=== PATIENT | male | born 1965 | race African-American/Black ===

== ENCOUNTER 2016-10-28 11:48 | Observation (INO) | payer OTHER ==
[2016-10-28] VITALS (10 sets, daily range): BP systolic 124–171; BP diastolic 74–88; PULSE 80–107; RESP 16–22; TEMP 97.7–98.4; O2SAT 93–98
[~2016-10-28] VITALS: Ht 170.2 cm; Wt 128.0 kg
[~2016-10-28 11:48] MED LIST: ASPI325T PO; LIPI10TA PO; LISI-363 PO
[2016-10-28] MEDS ORDERED: METO25TA3 PO (11:53)
[2016-10-28] MEDS ORDERED: ASPI81CH5 CHEW (11:53)
[2016-10-28] MEDS ORDERED: PLAV75TA29 PO (11:53)
[2016-10-28] MEDS ORDERED: SODIUM CHLORIDE 0.9% FLUSH 5 ML FLUSH IVF PRN ×2 (12:30→16:00)
[2016-10-28] MEDS ORDERED: MORPHINE SULFATE 4 MG/ML INJ IV PUSH ONE (12:30)
[2016-10-28] MEDS ORDERED: ASPIRIN 81 MG CHEW TAB PO ONE (12:30)
--- NOTE | 2016-10-28 12:56 | RADRPT ---
EXAM DATE/TIME: 10/28/2016 12:42 [facility] COMPARISON: CHEST SINGLE AP, November 16, 2014, 21:15. INDICATIONS : Chest pains with shortness of breath. History cardiac stents. MEDICAL HISTORY : Myocardial infarction. SURGICAL HISTORY : Coronary artery stent. ENCOUNTER: Initial ACUITY: 1 day PAIN SCORE: 8/10 LOCATION: Bilateral chest FINDINGS: A single view of the chest demonstrates the lungs to be symmetrically aerated without evidence of mas s, infiltrate or effusion. The cardiomediastinal contours are unremarkable. Osseous structures are intact. CONCLUSION: No acute disease. Uzair Phillip MD FACR on October 28, 2016 at 12:54 Board Certified Radiologist. This report was verified electronically.
[2016-10-28 13:15] LABS: AUTOMATED NEUTROPHIL # 3.9 TH/MM3 (1.8-7.7); BASOPHIL # 0.1 TH/MM3 (0-0.2); BASOPHIL % 0.9 % (0.0-2.0); EOSINOPHIL # 0.2 TH/MM3 (0-0.4); EOSINOPHIL % 2.6 % (0.0-4.0); HEMATOCRIT 40.1 % (39.0-51.0); HEMO FLAGS DIFF FINAL; LYMPH % 29.2 % (9.0-44.0); LYMPHOCYTE # 1.9 TH/MM3 (1.0-4.8); MEAN CELL VOLUME 85.4 FL (80.0-100.0); MEAN CORPUSCULAR HEMOGLOBIN 28.4 PG (27.0-34.0); MEAN CORPUSCULAR HGB CONC 33.3 % (32.0-36.0); MONO % 8.4 % (0.0-8.0); NEUT % 58.9 % (16.0-70.0); PLATELET COUNT 266 TH/MM3 (150-450); RED BLOOD COUNT 4.69 MIL/MM3 (4.50-5.90); RED CELL DISTRIBUTION WIDTH 14.2 % (11.6-17.2); WHITE BLOOD COUNT 6.6 TH/MM3 (4.0-11.0)
[2016-10-28 13:27] LABS: APTT (PATIENT) 26.8 SEC (24.3-30.1)
[2016-10-28 13:35] LABS: ALT (GPT) 37 U/L (12-78); ANION GAP 11 MEQ/L (5-15); AST (GOT) 52 U/L (15-37); BICARBONATE 23.5 MEQ/L (21.0-32.0); BLOOD UREA NITROGEN 14 MG/DL (7-18); CHLORIDE 104 MEQ/L (98-107); GLOMERULAR FILTRATION RATE 97 ML/MIN (>89); POTASSIUM 3.5 MEQ/L (3.5-5.1); SODIUM (NA) 138 MEQ/L (136-145)
--- NOTE | 2016-10-28 13:38 | RADRPT ---
EXAM DATE/TIME: 10/28/2016 13:18 [facility] COMPARISON: No previous studies available for comparison. INDICATIONS : Trauma. Fell and hit head. RADIATION DOSE: 56.35 CTDIvol (mGy) MEDICAL HISTORY : Cerebrovascular disease. Hypertension. Myocardial infarction. SURGICAL HISTORY : None. ENCOUNTER: Initial ACUITY: 1 day PAIN SCALE: 6/10 LOCATION: cranial TECHNIQUE: Multiple contiguous axial images were obtained of the head. Using automated exposure control and adj ustment of the mA and/or kV according to patient size, radiation dose was kept as low as reasonably a chievable to obtain optimal diagnostic quality images. FINDINGS: CEREBRUM: The ventricles are normal for age. No evidence of midline shift, mass lesion, hemorrhage or acute in farction. No extra-axial fluid collections are seen. POSTERIOR FOSSA: The cerebellum and brainstem are intact. The 4th ventricle is midline. The cerebellopontine angle i s unremarkable. EXTRACRANIAL: The visualized portion of the orbits is intact. SKULL: The calvaria is intact. No evidence of skull fracture. CONCLUSION: Normal examination. Wood Gray MD on October 28, 2016 at 13:36 Board Certified Radiologist. This report was verified electronically.
[2016-10-28 13:39] LABS: ALKALINE PHOSPHATASE 75 U/L (45-117); TOTAL BILIRUBIN ADULT 0.4 MG/DL (0.2-1.0)
--- NOTE | 2016-10-28 13:41 | RADRPT ---
EXAM DATE/TIME: 10/28/2016 13:18 [facility] COMPARISON: No previous studies available for comparison. INDICATIONS : Trauma. Fell and hit head. RADIATION DOSE: 40.95 CTDIvol (mGy) MEDICAL HISTORY : Cerebrovascular disease. Hypertension. Myocardial infarction. SURGICAL HISTORY : None. ENCOUNTER: Initial ACUITY: 1 day PAIN SCALE: 2/10 LOCATION: neck TECHNIQUE: Volumetric scanning of the cervical spine was performed. Multiplanar reconstructions i n the sagittal, coronal and oblique axial planes were performed. Using automated exposure control a nd adjustment of the mA and/or kV according to patient size, radiation dose was kept as low as reason ably achievable to obtain optimal diagnostic quality images. FINDINGS: VERTEBRAE: Normal vertebral body height. Minimal anterior marginal spurring C5-6 ALIGNMENT: No evidence of subluxation. Mild reversal of normal cervical curvature. C2-C3: The bony spinal canal is normal in size. No evidence of disc bulge or herniation. The neura l foramina are bilaterally patent. C3-C4: The bony spinal canal is normal in size. No evidence of disc bulge or herniation. The neura l foramina are bilaterally patent. C4-C5: The bony spinal canal is normal in size. No evidence of disc bulge or herniation. The neura l foramina are bilaterally patent. C5-C6: The bony spinal canal is normal in size. No evidence of disc bulge or herniation. The neura l foramina are bilaterally patent. C6-C7: The bony spinal canal is normal in size. No evidence of disc bulge or herniation. The neura l foramina are bilaterally patent. C7-T1: The bony spinal canal is normal in size. No evidence of disc bulge or herniation. The neura l foramina are bilaterally patent. CONCLUSION: No acute bony injury. Reversal of normal cervical curvature. Minimal anterior margina l spurring . Wood Gray MD on October 28, 2016 at 13:37 Board Certified Radiologist. This report was verified electronically.
--- NOTE | 2016-10-28 15:16 | PD ---
HPI Chief Complaint: Chest Pain Time Seen by Provider: 12:12 Travel History International Travel<30 days: No Contact w/Intl Traveler<30days: No Traveled to known affect area: No History of Present Illness HPI Patient is a 50-year-old male history of DC and stent placement, comes in complaining of chest pain. Per EMS he was placed under arrest for shoplifting when he started to complain of chest pain. He says that he had chest pain starting this morning. He says he took some aspirin at home hoping that this would help. Per EMS he fell down and hit his head when the animal attendants and trainers were going to take him in the police car to the hospital. Patient is complaining of headache as well as chest pain. He denies nausea or vomiting. He denies any shortness of breath. PFSH Past Medical History High Cholesterol: Yes Cerebrovascular Accident: Yes (LEFT SIDE STROKE 2 WEEKS AGO, LEFT JAW NUMBNESS) Diabetes: No Gastrointestinal Disorders: Yes (diverticultis) Hypertension: Yes Myocardial Infarction: Yes (2004) Tetanus Vaccination: Unknown Influenza Vaccination: No Family History Family Myocardial Infarction: Yes (father) Social History Alcohol Use: Yes Tobacco Use: Yes Substance Use: Yes (WEED) Allergies-Medications (Allergen,Severity, Reaction): Coded Allergies: Milk (Verified Allergy, Unknown, 10/28/16) Reported Meds & Prescriptions Reported Meds & Active Scripts Active Reported Metoprolol Tartrate 25 Mg Tab Unknown Dose PO DAILY Aspirin Childrens (Aspirin) 81 Mg Chew 81 Mg CHEW DAILY Plavix (Clopidogrel Bisulfate) 75 Mg Tab 75 Mg PO DAILY Review of Systems Except as stated in HPI: all other systems reviewed are Neg General / Constitutional: No: Fever, Chills HENT: Positive: Headaches Cardiovascular: Positive: Chest Pain or Discomfort Respiratory: No: Cough, Shortness of Breath Gastrointestinal: No: Nausea, Vomiting Genitourinary: No: Dysuria Musculoskeletal: Positive: Pain Skin: No Rash, No Change in Pigmentation Neurologic: No: Weakness, Dizziness Physical Exam Narrative GENERAL: Awake and alert, in no acute distress. SKIN: Warm and dry. HEAD: Atraumatic. Normocephalic. EYES: Pupils equal and round. No scleral icterus. Extraocular movements intact. ENT: Mucous membranes pink and moist. NECK: Trachea midline. No JVD. No cervical spine tenderness. CARDIOVASCULAR: Regular rate and rhythm. No murmur appreciated. RESPIRATORY: No accessory muscle use. Clear to auscultation. Breath sounds equal bilaterally. GASTROINTESTINAL: Abdomen soft, non-tender, nondistended. MUSCULOSKELETAL: No obvious deformities. No clubbing. No cyanosis. No edema. NEUROLOGICAL: Awake and alert. No obvious cranial nerve deficits. Motor grossly within normal limits. Normal speech. PSYCHIATRIC: Appropriate mood and affect; insight and judgment normal. Data Data Last Documented VS Vital Signs Date Time Temp Pulse Resp B/P Pulse Ox O2 Delivery O2 Flow Rate FiO2 10/28/16 13:50 18 98 Room Air 10/28/16 13:49 92 146/87 167/87 10/28/16 11:53 98.4 Orders Complete Blood Count With Diff (10/28/16 12:20) Comprehensive Metabolic Panel (10/28/16 12:20) Prothrombin Time / Inr (Pt) (10/28/16 12:20) Act Partial Throm Time (Ptt) (10/28/16 12:20) Troponin I (10/28/16 12:20) Chest, Single Ap (10/28/16 12:20) Ecg Monitoring (10/28/16 12:20) Bilateral Bp Monitoring (10/28/16 12:20) Iv Access Insert/Monitor (10/28/16 12:20) Oximetry (10/28/16 12:20) Aspirin Chew (Aspirin Chew) (10/28/16 12:30) Sodium Chloride 0.9% Flush (Ns Flush) (10/28/16 12:30) Ct Brain W/O Iv Contrast(Rout) (10/28/16 ) Ct Cerv Spine W/O Contrast (10/28/16 ) Morphine Inj (Morphine Inj) (10/28/16 12:30) Alcohol (Ethanol) (10/28/16 12:22) Admit Order (Ed Use Only) (10/28/16 ) Labs Laboratory Tests Test 10/28/16 12:05 White Blood Count 6.6 TH/MM3 Red Blood Count 4.69 MIL/MM3 Hemoglobin 13.3 GM/DL Hematocrit 40.1 % Mean Corpuscular Volume 85.4 FL Mean Corpuscular Hemoglobin 28.4 PG Mean Corpuscular Hemoglobin 33.3 % Concent Red Cell Distribution Width 14.2 % Platelet Count 266 TH/MM3 Mean Platelet Volume 7.8 FL Neutrophils (%) (Auto) 58.9 % Lymphocytes (%) (Auto) 29.2 % Monocytes (%) (Auto) 8.4 % Eosinophils (%) (Auto) 2.6 % Basophils (%) (Auto) 0.9 % Neutrophils # (Auto) 3.9 TH/MM3 Lymphocytes # (Auto) 1.9 TH/MM3 Monocytes # (Auto) 0.6 TH/MM3 Eosinophils # (Auto) 0.2 TH/MM3 Basophils # (Auto) 0.1 TH/MM3 CBC Comment DIFF FINAL Differential Comment Prothrombin Time 11.0 SEC Prothromb Time International 1.0 RATIO Ratio Activated Partial 26.8 SEC Thromboplast Time Sodium Level 138 MEQ/L Potassium Level 3.5 MEQ/L Chloride Level 104 MEQ/L Carbon Dioxide Level 23.5 MEQ/L Anion Gap 11 MEQ/L Blood Urea Nitrogen 14 MG/DL Creatinine 1.00 MG/DL Estimat Glomerular Filtration 97 ML/MIN Rate Random Glucose 93 MG/DL Calcium Level 8.4 MG/DL Total Bilirubin 0.4 MG/DL Aspartate Amino Transf 52 U/L (AST/SGOT) Alanine Aminotransferase 37 U/L (ALT/SGPT) Alkaline Phosphatase 75 U/L Troponin I LESS THAN 0.02 NG/ML Total Protein 7.5 GM/DL Albumin 3.9 GM/DL [facility] Medical Decision Making Medical Screen Exam Complete: Yes Emergency Medical Condition: Yes Medical Record Reviewed: Yes Interpretation(s) ECG shows normal sinus rhythm, T-wave inversions in V4 through V6, no ST elevation or depression. Differential Diagnosis ACS versus NSTEMI versus STEMI versus syncope Narrative Course Patient is a 50-year-old male who comes in complaining of chest pain. Exam shows no acute abnormalities. IV established, patient connected to the dairy scientist. Labs sent show no acute abnormalities. Chest x-ray performed shows no acute abnormalities. CT of the head shows no acute abnormalities. Patient placed in chest pain center for further management. Diagnosis Primary Impression: Chest pain Qualified Code: R07.9 - Chest pain, unspecified type Admitting Information Admitting Physician Requests: Debra Prince MD Oct 28, 2016 15:16
[2016-10-28] MEDS ORDERED: ONDANSETRON HCL 4 MG/2 ML VIAL IV PRN (16:00)
[2016-10-28] MEDS ORDERED: ACETAMINOPHEN 500 MG CPLT PO PRN (16:00)
[2016-10-28] MEDS ORDERED: ALPRAZolam 0.25 MG TAB PO PRN (16:00)
[2016-10-28] MEDS ORDERED: ACETAMINOPHEN/HYDROcodone 325 MG/7.5 MG TAB PO PRN (16:00)
--- NOTE | 2016-10-28 16:00 | HHI.HP ---
HPI Primary Care Physician No Primary Care Physician Chief Complaint Chest pain History of Present Illness This is a 50-year-old male with history of CAD that presents to the ED clouding of a discomfort in his chest that began at 7:00 this morning. It is a high intensity for about 2 hours but has remained at a lower level since. Currently discomfort is about a 2 out of 10. He has had nausea initially. Diaphoresis initially. States he had an [place] in 2006 had a stent placed at [facility]. He does not follow public policy mediator regularly. He presents to the ED while in custody of [place] [employer] police officer. He apparently had fallen backwards and struck his head on the ground. Patient did not complain of any neck discomfort or headache to me. He denies syncope. Patient is not compliant with statin therapy. Review of Systems General: Patient denies fevers, chills recent, and recent travel HEENT: Patient denies headache, sore throat, difficulty swallowing. He had apparently fallen backwards and struck his head on the ground. Denies LOC. Cardiovascular: Has the chest discomfort as mentioned above. Denies sensation of heart beating rapidly or irregularly. No syncope. Respiratory: Denies shortness of breath or inspirational chest discomfort. Denies coughing wheezing or hemoptysis. GI: Patient denies nausea, vomiting, diarrhea, abdominal pain, bloody stools. Musculoskeletal: Patient denies joint pain or edema. Denies calf pain or edema. Neurovascular: Patient denies numbness, tingling, weakness in extremities. Denies headache. Endocrine: Denies polyuria and polydipsia. Hematologic: Denies easy bruising. Skin: Denies rash or itching. Past Family Social History Allergies: Coded Allergies: Milk (Verified Allergy, Unknown, 10/28/16) Past Medical History State history of CAD. States he had an [place] 2006 with a stent. Hypertension, hyperlipidemia tobacco abuse, and substance abuse. States he last used cocaine yesterday. Denies diabetes. Past Surgical History Heart catheterization with stenting 2006. Reported Medications Reported Meds & Active Scripts Active Reported Metoprolol Tartrate 25 Mg Tab Unknown Dose PO DAILY Aspirin Childrens (Aspirin) 81 Mg Chew 81 Mg CHEW DAILY Plavix (Clopidogrel Bisulfate) 75 Mg Tab 75 Mg PO DAILY Active Ordered Medications Current Medications Medications (Trade) Dose Ordered Sig/Kyaw Route Start Time Stop Time Status Last Admin (NS Flush) 2 ml UNSCH PRN IVF 10/28/16 12:30 (Plavix) 75 mg DAILY PO 10/29/16 09:00 UNV (Lopressor) 25 mg BID PO 10/28/16 21:00 UNV Family History Denies family history of CAD. Social History Patient smokes one half pack of cigarettes daily. He last used cocaine yesterday. Has occasional alcohol. Physical Exam Vital Signs Vital Signs Date Time Temp Pulse Resp B/P Pulse Ox O2 Delivery O2 Flow Rate FiO2 10/28/16 13:50 18 98 Room Air 10/28/16 13:49 92 146/87 167/87 10/28/16 12:10 100 20 124/87 96 10/28/16 12:10 102 20 94 Room Air 10/28/16 11:53 98.4 107 22 124/87 94 Physical Exam GENERAL: This is a well-nourished, well-developed patient, in no apparent distress. Patient speaks in clear complete sentences. Patient is pleasant. HEENT: Head is atraumatic and normocephalic. Neck is supple without lymphadenopathy and trachea is midline. No JVD or carotid bruits. CARDIOVASCULAR: Regular rate and rhythm without murmurs, gallops, or rubs. RESPIRATORY: Clear to auscultation. Breath sounds equal bilaterally. No wheezes , rales, or rhonchi. Chest wall is nontender. No use of accessory muscles. GASTROINTESTINAL: Abdomen is nontender, nondistended. Abdomen soft. No obvious pulsatile mass or bruit. No CVA tenderness. Strong femoral pulses bilaterally. Normal bowel sounds in all quadrants. MUSCULOSKELETAL: Patient is moving upper and lower extremities freely. No calf tenderness or edema, no Homans sign. Strong pulses in upper and lower extremities. NEUROLOGICAL: Patient is alert and oriented. Cranial nerves 2-12 are grossly intact. No focal deficits and speech is clear. SKIN: No rash and turgor is normal. Laboratory Laboratory Tests Test 10/28/16 12:05 White Blood Count 6.6 Red Blood Count 4.69 Hemoglobin 13.3 Hematocrit 40.1 Mean Corpuscular Volume 85.4 Mean Corpuscular Hemoglobin 28.4 Mean Corpuscular Hemoglobin 33.3 Concent Red Cell Distribution Width 14.2 Platelet Count 266 Mean Platelet Volume 7.8 Neutrophils (%) (Auto) 58.9 Lymphocytes (%) (Auto) 29.2 Monocytes (%) (Auto) 8.4 Eosinophils (%) (Auto) 2.6 Basophils (%) (Auto) 0.9 Neutrophils # (Auto) 3.9 Lymphocytes # (Auto) 1.9 Monocytes # (Auto) 0.6 Eosinophils # (Auto) 0.2 Basophils # (Auto) 0.1 CBC Comment DIFF FINAL Differential Comment Prothrombin Time 11.0 Prothromb Time International 1.0 Ratio Activated Partial 26.8 Thromboplast Time Sodium Level 138 Potassium Level 3.5 Chloride Level 104 Carbon Dioxide Level 23.5 Anion Gap 11 Blood Urea Nitrogen 14 Creatinine 1.00 Estimat Glomerular Filtration 97 Rate Random Glucose 93 Calcium Level 8.4 Total Bilirubin 0.4 Aspartate Amino Transf 52 (AST/SGOT) Alanine Aminotransferase 37 (ALT/SGPT) Alkaline Phosphatase 75 Troponin I LESS THAN 0.02 Total Protein 7.5 Albumin 3.9 Result Diagram: 10/28/16 1205 10/28/16 1205 Imaging Last 24 hours Impressions Chest X-Ray 10/28/16 1220 Signed Impressions: Service Date/Time: Friday, October 28, 2016 12:42 - CONCLUSION: No acute disease. Uzair Phillip MD FACR Head CT 10/28/16 0000 Signed Impressions: Service Date/Time: Friday, October 28, 2016 13:18 - CONCLUSION: Normal examination. Wood Gray MD Cervical Spine CT 10/28/16 0000 Signed Impressions: Service Date/Time: Friday, October 28, 2016 13:18 - CONCLUSION: No acute bony injury. Reversal of normal cervical curvature. Minimal anterior marginal spurring . Wood Gray MD Course Initial EKG has sinus tachycardia rate of 105. There are inferior Q waves and lateral T-wave changes are nonspecific. Assessment and Plan Assessment and Plan * Chest pain: Patient has been seen by Dr. Gil Roberts of cardiology and the chest pain center. He will spend the evening in the chest pain center to rule out with serial cardiac enzymes and EKGs. If he does rule out he would then proceed with stress testing. He will be discharged home with instructions to follow with his primary care physician as well as a local public policy mediator if his stress test were to be nonischemic. * CAD: Patient states he had a stent in 2006. This will be reassessed stress testing. Patient takes metoprolol. I discussed this medication with Dr. Gil Roberts as he also uses cocaine. At this time the patient will remain on metoprolol. * Hypertension: We'll continue metoprolol. * Hyperlipidemia: Patient states he is not taking any medication for this. He cannot recall why. A prescription will be provided. * Cocaine abuse: Patient has been counseled on importance of not using cocaine. It was explained to him that it could kill him. * Tobacco abuse: Patient has been counseled on the importance of smoking cessation. Patient is stable at this time. He is agreeable to this plan. Turner Ibrahim Oct 28, 2016 16:00
[2016-10-28] MEDS: PANTOPRAZOLE SOD 40 MG DELAYED RELEASE TAB PO SCH (17:33)
[2016-10-28 18:34] LABS: CREATINE KINASE 2033 U/L (39-308)
[2016-10-28 18:46] LABS: CKMB 8.9 NG/ML (0.5-3.6)
[2016-10-28] MEDS: SODIUM CHLORIDE 0.9% FLUSH 5 ML FLUSH IVF SCH (19:35)
[2016-10-28] MEDS: METOPROLOL TARTRATE 25 MG TAB PO SCH (19:35)
[2016-10-28 20:45] LABS: CREATINE KINASE 1996 U/L (39-308)
[2016-10-28 20:58] LABS: CKMB 9.1 NG/ML (0.5-3.6)
[2016-10-29] VITALS (7 sets, daily range): BP systolic 123–145; BP diastolic 73–89; PULSE 63–81; RESP 18–21; TEMP 97.5–98; O2SAT 92–98
[2016-10-29] MEDS ORDERED: CLOPIDOGREL 75 MG TAB PO SCH (09:00)
[2016-10-29] MEDS ORDERED: ASPIRIN 325 MG TAB PO SCH (09:00)
[2016-10-29] MEDS ORDERED: REGADENOSON INJ 0.4 MG/5 ML SYR ONE (09:37)
[2016-10-29] MEDS: PANTOPRAZOLE SOD 40 MG DELAYED RELEASE TAB PO SCH (10:31)
[2016-10-29] MEDS: METOPROLOL TARTRATE 25 MG TAB PO SCH (10:31)
[2016-10-29] MEDS: SODIUM CHLORIDE 0.9% FLUSH 5 ML FLUSH IVF SCH (10:32)
--- NOTE | 2016-10-29 11:40 | RADRPT ---
EXAM DATE/TIME: 10/29/2016 08:53 [facility] COMPARISON: MYOCARDIAL PERF PHARM SPECT, GATED W/EF, November 17, 2014, 10:27. INDICATIONS : Chest pain for 1 day. Angina. Myocardial infarction. DOSE: 35.0 mCi Tc99m Myoview at stress. 11.0 mCi Tc99m Myoview at rest. 0.4 mg Lexiscan STRESS SYMPTOMS: Weird feeling and headache EJECTION FRACTION: 59% MEDICAL HISTORY : Cardiovascular disease. Hyperthyroidism. Hypercholesterolemia. Stroke. SURGICAL HISTORY : Coronary artery stent. Left knee. ENCOUNTER: Initial ACUITY: 1 day PAIN SCALE: 2/10 LOCATION: Bilateral chest TECHNIQUE: The patient underwent pharmacologic stress with infusion of prescribed dose. Continuous ECG tracing was monitored during stress. Gated SPECT imaging was performed after stress and conventional SPECT i maging was performed at rest. The examination was performed on a SPECT/CT scanner, both attenuation and non-corrected datasets were reviewed. FINDINGS: DISTRIBUTION: The maximum perfused segment at stress is in the anteroseptal wall. PERFUSION STUDY: The pattern of perfusion at stress is within normal limits. GATED STUDY: There is intact wall motion and thickening without hypokinetic or dyskinetic segments. CONCLUSION: 1. Left ventricle perfusion is within normal limits. No fixed or reversible perfusion defect is ident ified. 2. Normal left ventricle wall motion with a calculated ejection fraction of 59%. RISK CATEGORY: Low (<1% Annual Mortality Rate) Francisco Noe MD on October 29, 2016 at 11:30 Board Certified Radiologist. This report was verified electronically.
--- NOTE | 2016-10-29 11:43 | HHI.DCPOC ---
Discharge Care Plan Diagnosis: (1) Atypical chest pain (2) Hx of coronary artery disease Goals to Promote Your Health * To prevent worsening of your condition and complications * To maintain your health at the optimal level Directions to Meet Your Goals Take your medications as prescribed Follow your dietary instruction Follow activity as directed Keep your appointments as scheduled Take your immunizations and boosters as scheduled If your symptoms worsen call your PCP, if no PCP go to Urgent Care Center or Emergency Room Smoking is Dangerous to Your Health. Avoid second hand smoke Call the 24-hour hour crisis hotline for domestic abuse at Cyndy Lawton Oct 29, 2016 11:43
[2016-10-29] MEDS ORDERED: METO25TA3 PO (11:58)
[2016-10-29] MEDS ORDERED: PLAV75TA29 PO (11:58)
--- NOTE | 2016-10-29 12:36 | TR ---
Date Performed: 10/29/2016 Time Performed: 09:39:29 DOCTOR: Paloma Bah DRUG LIST: CLINICAL HISTORY: REASON FOR TEST: REASON FOR ENDING: OBSERVATION: CONCLUSION: Lexiscan stress test was performed under standard four minute protocol. Radionuclid e was injected one minute prior to ending the test. No electrocardiographic abormalities were present to suggest ischemia. Nuclear imaging and interpretation are pending. COMMENTS:
--- NOTE | 2016-10-29 12:39 | EKG ---
Date Performed: 10/28/2016 Time Performed: 17:14:35 PTAGE: 50 years EKG: Sinus rhythm NONSPECIFIC T-WAVE ABNORMALITY ABNORMAL ECG Since PREVIOUS TRACING , no significant change noted PREVIOUS TRACIN10/28/2016 11.55 DOCTOR: Paloma Bah Interpretating Date/Time 10/29/2016 12:39:04
--- NOTE | 2016-10-29 12:40 | EKG ---
Date Performed: 10/28/2016 Time Performed: 20:38:17 PTAGE: 50 years EKG: Sinus rhythm WITH OCCASIONAL SUPRAVENTRICULAR PREMATURE COMPLEXES NONSPECIFIC T-WAVE ABNORMALITY BORDERLINE ECG S hosea PREVIOUS TRACING , no significant change noted PREVIOUS TRACIN10/28/2016 17.14 DOCTOR: Paloma Bah Interpretating Date/Time 10/29/2016 12:40:14
--- NOTE | 2016-10-29 12:42 | EKG ---
Date Performed: 10/28/2016 Time Performed: 11:55:40 PTAGE: 50 years EKG: SINUS TACHYCARDIA PROBABLE INFERIOR MYOCARDIAL INFARCTION MODERATE T-WAVE ABNORMALITY, CONS IDER LATERAL ISCHEMIA ABNORMAL ECG Since previous tracing, there is lateral T inversions NO PREVIOUS TRACING DOCTOR: Paloma Bah Interpretating Date/Time 10/29/2016 12:41:20
== END 2016-10-29 13:53 | disposition home or self-care (01) ==
LOC: NEPA 11:48 → NEDA 15:17 → NEPGCP 18:40 → NEDA 10-29 04:17 → NEPGCP 10-29 04:17
PROVIDERS: ADMIT Internal Medicine Cardiovascular Disease; ATTEND Internal Medicine Cardiovascular Disease
DX: R07.89 Other chest pain (principal); I25.10 Atherosclerotic heart disease of native coronary artery without angina pectoris; I10 Essential (primary) hypertension; E78.00 Pure hypercholesterolemia, unspecified; E78.5 Hyperlipidemia, unspecified; F17.210 Nicotine dependence, cigarettes, uncomplicated; I25.2 Old myocardial infarction; Z95.5 Presence of coronary angioplasty implant and graft; Z86.73 Personal history of transient ischemic attack (TIA), and cerebral infarction without residual deficits
CPT/HCPCS: 70450; 71010; 72125; 78452; 80053; 80320; 82550; 82552; 84484; 85025; 85610; 85730; 93005; 93017; 96374; 99285; A9502; G0378; J2270; J2785

== ENCOUNTER 2017-12-08 14:16 | Inpatient (IN) | payer OTHER ==
[~2017-12-08] VITALS: Ht 170.2 cm; Wt 136.4 kg
[~2017-12-08 14:16] MED LIST changes: -ASPI325T PO; +ASPI81CH5 CHEW; -LIPI10TA PO; -LISI-363 PO; +METO25TA3 PO; +PLAV75TA29 PO
[2017-12-08] MEDS ORDERED: AMLO5TAB2 PO (14:36)
[2017-12-08] MEDS ORDERED: LOSA50TA PO (14:37)
[2017-12-08] MEDS ORDERED: ATOR40TA16 PO (14:37)
--- NOTE | 2017-12-08 14:52 | PD ---
HPI Chief Complaint: Psychiatric Symptoms Time Seen by Provider: 14:36 Travel History International Travel<30 days: No Contact w/Intl Traveler<30days: No History of Present Illness HPI 52-year-old -[place]ander male presents emergency department with suicidal ideation. Patient comes in under the Baptiste act. He states no medical complaints at this time. Patient does have a history of heart disease with heart attack last September. Patient currently on aspirin, Plavix, and hypertensive meds. Patient states no pain or shortness of breath currently. He is allergic to milk but has no known drug allergies. PFSH Past Medical History Cardiovascular Problems: Yes High Cholesterol: Yes Cerebrovascular Accident: Yes (LEFT SIDE STROKE 2 WEEKS AGO, LEFT JAW NUMBNESS) Diabetes: No Gastrointestinal Disorders: Yes (diverticultis) Hypertension: Yes Myocardial Infarction: Yes (2004) Social History Alcohol Use: Yes Tobacco Use: Yes Substance Use: Yes (WEED) Allergies-Medications (Allergen,Severity, Reaction): Coded Allergies: milk (Unverified Allergy, Unknown, Nausea/Vomiting, 12/08/17) Per pt. Reported Meds & Prescriptions Reported Meds & Active Scripts Active Metoprolol Tartrate 25 Mg Tab 25 Mg PO DAILY Plavix (Clopidogrel Bisulfate) 75 Mg Tab 75 Mg PO DAILY Reported Losartan (Losartan Potassium) 50 Mg Tab 50 Mg PO DAILY Atorvastatin (Atorvastatin Calcium) 40 Mg Tab 40 Mg PO HS Amlodipine (Amlodipine Besylate) 5 Mg Tab 5 Mg PO HS Aspirin Childrens (Aspirin) 81 Mg Chew 81 Mg CHEW DAILY Review of Systems Except as stated in HPI: all other systems reviewed are Neg General / Constitutional: No: Fever Eyes: No: Visual changes HENT: No: Headaches Cardiovascular: No: Chest Pain or Discomfort Respiratory: No: Shortness of Breath Gastrointestinal: No: Abdominal Pain Genitourinary: No: Dysuria Musculoskeletal: No: Pain Skin: No Rash Neurologic: No: Weakness Psychiatric: Positive: Depression, Suicidal Ideations, No: Homicidal Ideation Endocrine: No: Polydipsia Hematologic/Lymphatic: No: Easy Bruising Physical Exam Narrative GENERAL: Patient appears emotionally upset with tears in his eyes. SKIN: Warm and dry. Normal color. Normal turgor. No signs of trauma. HEAD: Atraumatic. Normocephalic. EYES: Pupils equal and round. No scleral icterus. No injection or drainage. ENT: No nasal bleeding or discharge. Mucous membranes pink and moist. Pharynx is clear. Airways patent NECK: Trachea midline. No JVD. CARDIOVASCULAR: Regular rate and rhythm. RESPIRATORY: No accessory muscle use. Clear to auscultation. Breath sounds equal bilaterally. MUSCULOSKELETAL: Extremities without clubbing, cyanosis, or edema. No obvious deformities. NEUROLOGICAL: Awake and alert. No obvious cranial nerve deficits. Motor grossly within normal limits. Five out of 5 muscle strength in the arms and legs. Normal speech. PSYCHIATRIC: Appropriate mood and affect; insight and judgment normal. Data Data Last Documented VS Vital Signs Date Time Temp Pulse Resp B/P (MAP) Pulse Ox O2 Delivery O2 Flow Rate FiO2 12/08/17 15:41 90 18 157/87 (110) 99 Room Air Orders Orders Complete Blood Count With Diff (12/08/17 14:40) Comprehensive Metabolic Panel (12/08/17 14:40) Thyroid Stimulating Hormone (12/08/17 14:40) Psych Screen (12/08/17 14:40) Drug Screen, Random Urine (12/08/17 14:40) Alcohol (Ethanol) (12/08/17 14:40) Diet Regular Basic (12/08/17 Dinner) Labs Laboratory Tests Test 12/08/17 15:04 White Blood Count 8.3 TH/MM3 Red Blood Count 4.74 MIL/MM3 Hemoglobin 13.2 GM/DL Hematocrit 40.0 % Mean Corpuscular Volume 84.4 FL Mean Corpuscular Hemoglobin 27.8 PG Mean Corpuscular Hemoglobin Concent 32.9 % Red Cell Distribution Width 14.9 % Platelet Count 331 TH/MM3 Mean Platelet Volume 7.0 FL Neutrophils (%) (Auto) 63.9 % Lymphocytes (%) (Auto) 27.4 % Monocytes (%) (Auto) 7.2 % Eosinophils (%) (Auto) 1.3 % Basophils (%) (Auto) 0.2 % Neutrophils # (Auto) 5.3 TH/MM3 Lymphocytes # (Auto) 2.3 TH/MM3 Monocytes # (Auto) 0.6 TH/MM3 Eosinophils # (Auto) 0.1 TH/MM3 Basophils # (Auto) 0.0 TH/MM3 CBC Comment DIFF FINAL Differential Comment Blood Urea Nitrogen 12 MG/DL Creatinine 1.13 MG/DL Random Glucose 89 MG/DL Total Protein 7.4 GM/DL Albumin 3.6 GM/DL Calcium Level 8.5 MG/DL Alkaline Phosphatase 76 U/L Aspartate Amino Transf (AST/SGOT) 23 U/L Alanine Aminotransferase (ALT/SGPT) 27 U/L Total Bilirubin 0.4 MG/DL Sodium Level 138 MEQ/L Potassium Level 3.7 MEQ/L Chloride Level 102 MEQ/L Carbon Dioxide Level 28.6 MEQ/L Anion Gap 7 MEQ/L Estimat Glomerular Filtration Rate 83 ML/MIN Thyroid Stimulating Hormone 3rd Gen 0.928 uIU/ML Ethyl Alcohol Level LESS THAN 3 MG/DL MDM Medical Decision Making Medical Screen Exam Complete: Yes Emergency Medical Condition: Yes Differential Diagnosis Baptiste act. Depression. Suicidal ideation. Narrative Course Patient is medically stable at time of exam. Labs ordered per psychiatric protocol. Patient is medically cleared for psychiatric evaluation. Condition: Stable Trae Zimmerman Dec 08, 2017 14:52
[2017-12-08 15:41] VITALS: BP 157/87; PULSE 90; RESP 18; O2SAT 99
[2017-12-08 15:45] LABS: AUTOMATED NEUTROPHIL # 5.3 TH/MM3 (1.8-7.7); BASOPHIL % 0.2 % (0.0-2.0); EOSINOPHIL # 0.1 TH/MM3 (0-0.4); EOSINOPHIL % 1.3 % (0.0-4.0); HEMOGLOBIN 13.2 GM/DL (13.0-17.0); LYMPH % 27.4 % (9.0-44.0); LYMPHOCYTE # 2.3 TH/MM3 (1.0-4.8); MEAN CELL VOLUME 84.4 FL (80.0-100.0); MEAN CORPUSCULAR HEMOGLOBIN 27.8 PG (27.0-34.0); MEAN CORPUSCULAR HGB CONC 32.9 % (32.0-36.0); MONO % 7.2 % (0.0-8.0); MONOCYTE # 0.6 TH/MM3 (0-0.9); NEUT % 63.9 % (16.0-70.0); PLATELET COUNT 331 TH/MM3 (150-450); RED BLOOD COUNT 4.74 MIL/MM3 (4.50-5.90); RED CELL DISTRIBUTION WIDTH 14.9 % (11.6-17.2); WHITE BLOOD COUNT 8.3 TH/MM3 (4.0-11.0)
[2017-12-08 16:07] LABS: ALBUMIN 3.6 GM/DL (3.4-5.0); ALT (GPT) 27 U/L (12-78); AST (GOT) 23 U/L (15-37); BICARBONATE 28.6 MEQ/L (21.0-32.0); BLOOD UREA NITROGEN 12 MG/DL (7-18); CALCIUM 8.5 MG/DL (8.5-10.1); CHLORIDE 102 MEQ/L (98-107); CREATININE 1.13 MG/DL (0.60-1.30); GLOMERULAR FILTRATION RATE 83 ML/MIN (>89); GLUCOSE,RANDOM 89 MG/DL (74-106); SODIUM (NA) 138 MEQ/L (136-145)
[2017-12-08 16:18] LABS: ALKALINE PHOSPHATASE 76 U/L (45-117); TOTAL BILIRUBIN ADULT 0.4 MG/DL (0.2-1.0); TOTAL PROTEIN 7.4 GM/DL (6.4-8.2)
[2017-12-08 18:44] VITALS: BP 134/99; PULSE 82; RESP 18; O2SAT 98
--- NOTE | 2017-12-08 19:42 | PD ---
History of Present Illness Chief Complaint: Depressive disorder Travel History International Travel<30 Days: No Contact w/Intl Traveler<30days: No Known affected area: No Legal Status Legal Status: Baptiste Act Baptiste Act Signed By: Signed by Serena DUPONT Officer Vicky Melvin [id number] Baptiste Act Comment: Signed by Serena DUPONT Officer Vicky Melvin [id number] History of Present Illness: 52-year-old single, -[place] male presents under Baptiste act to this facility for making suicidal statements. Patient has not been seen at this facility for mental health issues previously. Reviewed electronic medical record, labs, discuss case with staff. Patient's toxicology screen is positive for cocaine and cannabinoids. Evaluation performed in patient's room and J pod. Patient was lying quietly in dark room he awoke easily to verbal stimulus. He is alert and oriented 4. His speech is clear, logical, and organized. His mood is sad as is his affect. There is no apparent internal stimulation. I can elicit no delusional material at this time. Patient became tearful during interview. Patient reports that he felt like he just did not want to live anymore. He states that he has let himself and everyone around him down. When asked to elaborate patient stated "by not living up to my potential". He still endorses suicide and states that he would "walk out into traffic". He reports that he lives with his mom and is unemployed but is "trying to get disability". Patient reports that he "has anxiety". He states that he used to take Valium when asked who prescribed these he stated "my pain management provider". He did not denies having any inpatient admissions or detox admissions. He does admit to doing a stent in senior living from 1997- 2001 for "sale and delivery of cocaine". PFS Past Medical History Cardiovascular Problems: Yes High Cholesterol: Yes Cerebrovascular Accident: Yes (LEFT SIDE STROKE 2 WEEKS AGO, LEFT JAW NUMBNESS) Diabetes: No Diminished Hearing: No Gastrointestinal Disorders: Yes (diverticultis) Hypertension: Yes Myocardial Infarction: Yes (2004) Tetanus Vaccination: > 5 Years ?: Not Past Surgical History Eye Surgery: Yes (Left eye per pt.) Psychiatric History Psychiatric History Denies Hx Psychiatric Treatment: Patient denies any tx hx from a psychiatrist. History of Inpatient Treatment: No Guns or firearms in home: No Social History Patient reports that he did a present stent from 1997 2001 for the sale and delivery of cocaine. He used cocaine and cannabinoids approximately 2 days ago. He states that he lives with his mother when asked how to get along he is said that they "get along sometimes". However, he denies that they are having a disagreement at this time. Hx Alcohol Use: Yes ("Sometimes") Hx Tobacco Use: Yes (0.5PPD) Hx Substance Use: Yes ("WEED" - "Almost daily" per pt) Substance Use Type: Alcohol, Marijuana, Nicotine/Cigarettes, Cocaine Hx of Substance Use Treatment: No Family Psychiatric History Denies any familial history of suicidal attempts or mental illness diagnoses. Allergies-Medications (Allergen,Severity, Reaction): Coded Allergies: milk (Unverified Allergy, Unknown, Nausea/Vomiting, 12/08/17) Per pt. Reported Meds & Prescriptions Reported Meds & Active Scripts Active Metoprolol Tartrate 25 Mg Tab 25 Mg PO DAILY Plavix (Clopidogrel Bisulfate) 75 Mg Tab 75 Mg PO DAILY Reported Losartan (Losartan Potassium) 50 Mg Tab 50 Mg PO DAILY Atorvastatin (Atorvastatin Calcium) 40 Mg Tab 40 Mg PO HS Amlodipine (Amlodipine Besylate) 5 Mg Tab 5 Mg PO HS Aspirin Childrens (Aspirin) 81 Mg Chew 81 Mg CHEW DAILY Mental Status Examination Appearance: Appropriate Consciousness: Alert Orientation: x4 Motor Activity: Other (Sitting on bed) Speech: Slow Language: Adequate Fund of Knowledge: Adequate Attention and Concentration: Adequate Memory: Unremarkable Mood: Sad, Other (Tearful) Affect: Sad Thought Process & Associations: Intact Thought Content: Appropriate Hallucination Type: None Delusion Type: None Suicidal Ideation: No Suicidal Plan: No Suicidal Intention: No Homicidal Ideation: No Homicidal Plan: No Homicidal Intention: No Insight: Fair Judgment: Impulsive MDM Medical Decision Making Medical Record Reviewed: Yes Assessment/Plan This is a 52-year-old single, -[place]wegian male who is brought by a Baptiste thuy to this facility for suicidal ideation. Patient had presented at [facility] originally but was sent here due to being out of the scope of practice. SMA reported that due to patient being on Plavix they are not able to care for him. Upon examination patient is tearful, sad, and depressed. His speech is clear, organized, logical. There is no indication of internal stimuli. I can elicit no delusions at this time. He reports feeling depressed and as though he "no longer wants to live". He endorses suicide by walking into traffic. He denies any thoughts of harming anyone else. He also denies auditory hallucinations but was extremely slow and providing an answer. When pressed, he states that he keeps hearing his own voice berating himself. He denies visual hallucinations. Due to his continued endorsement of suicide patient continues to meet the Baptiste act criteria and will be admitted inpatient for further evaluation and treatment as deemed necessary. Request HC Surrog/Guard Advoc?: No Orders Orders Complete Blood Count With Diff (12/08/17 14:40) Comprehensive Metabolic Panel (12/08/17 14:40) Thyroid Stimulating Hormone (12/08/17 14:40) Psych Screen (12/08/17 14:40) Drug Screen, Random Urine (12/08/17 14:40) Alcohol (Ethanol) (12/08/17 14:40) Diet Regular Basic (12/08/17 Dinner) Results Vital Signs Date Time Temp Pulse Resp B/P (MAP) Pulse Ox O2 Delivery O2 Flow Rate FiO2 12/08/17 18:44 82 18 134/99 (111) 98 Room Air 12/08/17 15:41 90 18 157/87 (110) 99 Room Air Laboratory Tests Test 12/08/17 15:04 12/08/17 17:40 White Blood Count 8.3 Red Blood Count 4.74 Hemoglobin 13.2 Hematocrit 40.0 Mean Corpuscular Volume 84.4 Mean Corpuscular Hemoglobin 27.8 Mean Corpuscular Hemoglobin Concent 32.9 Red Cell Distribution Width 14.9 Platelet Count 331 Mean Platelet Volume 7.0 Neutrophils (%) (Auto) 63.9 Lymphocytes (%) (Auto) 27.4 Monocytes (%) (Auto) 7.2 Eosinophils (%) (Auto) 1.3 Basophils (%) (Auto) 0.2 Neutrophils # (Auto) 5.3 Lymphocytes # (Auto) 2.3 Monocytes # (Auto) 0.6 Eosinophils # (Auto) 0.1 Basophils # (Auto) 0.0 CBC Comment DIFF FINAL Differential Comment Blood Urea Nitrogen 12 Creatinine 1.13 Random Glucose 89 Total Protein 7.4 Albumin 3.6 Calcium Level 8.5 Alkaline Phosphatase 76 Aspartate Amino Transf (AST/SGOT) 23 Alanine Aminotransferase (ALT/SGPT) 27 Total Bilirubin 0.4 Sodium Level 138 Potassium Level 3.7 Chloride Level 102 Carbon Dioxide Level 28.6 Anion Gap 7 Estimat Glomerular Filtration Rate 83 Thyroid Stimulating Hormone 3rd Gen 0.928 Ethyl Alcohol Level LESS THAN 3 Urine Opiates Screen NEG Urine Barbiturates Screen NEG Urine Amphetamines Screen NEG Urine Benzodiazepines Screen NEG Urine Cocaine Screen POS Urine Cannabinoids Screen POS Diagnosis Primary Impression: Major depressive disorder, single episode, moderate degree Admitting Information Admitting Physician Requests: Admit Condition: Stable Stephy Alex Dec 08, 2017 19:42
[2017-12-08] MEDS ORDERED: MAGNESIUM HYDROXIDE SUSP 30 ML CUP PO PRN (19:45)
[2017-12-08] MEDS ORDERED: ALUMINUM/MAGNESIUM/SIMETH 30 ML CUP PO PRN (19:45)
[2017-12-08] MEDS ORDERED: amLODIPine BESYLATE 5 MG TAB PO ONE (20:00)
[2017-12-08 20:15] VITALS: BP 190/104; PULSE 82; RESP 18; TEMP 98.2; O2SAT 95
[2017-12-09 06:34] VITALS: BP 143/71; PULSE 95; RESP 18; TEMP 98.2; O2SAT 96
[2017-12-09] MEDS: NICOTINE 21 MG/24 HR PATCH T-DERMAL SCH (08:32)
[2017-12-09] MEDS: REMOVE OLD PATCH T-DERMAL SCH (08:38)
[2017-12-09 09:05] LABS: BICARBONATE 27.6 MEQ/L (21.0-32.0); BLOOD UREA NITROGEN 12 MG/DL (7-18); CALCIUM 8.4 MG/DL (8.5-10.1); CHLORIDE 105 MEQ/L (98-107); GLUCOSE,RANDOM 114 MG/DL (74-106); SODIUM (NA) 139 MEQ/L (136-145)
[2017-12-09 09:06] LABS: GLOMERULAR FILTRATION RATE 86 ML/MIN (>89)
[2017-12-09 09:12] LABS: CHOLESTEROL 156 MG/DL (120-200); HDL CHOLESTEROL 45.8 MG/DL (40.0-60.0); LDL CHOLESTEROL 88 MG/DL (0-99); TRIGLYCERIDES 110 MG/DL (42-150)
[2017-12-09] MEDS ORDERED: PILL SPLITTER OTHER PRN (11:45)
[2017-12-09] MEDS ORDERED: SERTRALINE HCL 50 MG TAB PO ONE (12:00)
[2017-12-09] MEDS: METOPROLOL TARTRATE 25 MG TAB PO SCH (12:20)
[2017-12-09] MEDS: ASPIRIN 81 MG CHEW TAB CHEW SCH (12:21)
[2017-12-09] MEDS: LOSARTAN 50 MG TAB PO SCH (12:21)
[2017-12-09] MEDS: CLOPIDOGREL 75 MG TAB PO SCH (12:21)
--- NOTE | 2017-12-09 14:05 | HHI.HP ---
Provisional Diagnosis Admission Date Dec 08, 2017 at 19:46 [place]. Major depressive disorder, polysubstance use disorder Certification of Person's Competence To Provide Express and Informed Consent I have personally examined Del Reed , a person being served at [facility] on, Dec 09, 2017 13:51. Express and informed consent means consent voluntarily given in writing, by a competent person, after sufficient explanation and disclosure of the subject matter involved to enable the person to make a knowing and willful decision without any element of force, fraud, deceit, duress, or other form of constraint or coercion. This person is 18 years of age or older, is not now known to be incompetent to consent to treatment with a guardian advocate, and does not have a health care surrogate or proxy currently making medical treatment decisions. I have found this person to be one of the following: [xxx] Competent to provide express and informed consent, as defined above, for voluntary admission to this facility and is competent to provide express and informed consent for treatment. He/she has the consistent capacity to make well reasoned, willful, and knowing decisions concerning his or her medical or mental health treatment. The person fully and consistently understands the purpose of the admission for examination/placement and is fully capable of personally exercising all rights assured [place] [] Incompetent to provide express and informed consent to voluntary admission, and this is incompetent to provide express and informed consent to treatment. The person must be transferred to involuntary status and a petition for a guardian advocate filed with the Circuit Court. [] Refusing to provide express and informed consent to voluntary admission but is competent to provide express and informed consent for treatment. The person must be discharged or transferred to involuntary status. Form shall be completed within 24 hours of a person's arrival at the receiving facility and filed in the clinical record of each person: 1. Admitted on a voluntary basis 2. Permitted to provide express and informed consent to his/her own treatment 3. Allowed to transfer from involuntary to voluntary status 4. Prior to permitting a person to consent to his or her own treatment after having been previously found incompetent to consent to treatment. History of Present Illness Capacity: Has Capacity HPI Patient is a 52-year-old -[place] man, with 3 adult children, domiciled with mother, unemployed, with a past psychiatric history of anxiety, no previous psychiatric admissions, no previous suicide attempt or self injurious behavior, with the substance use history significant for marijuana and cocaine use disorder with a past medical history of hypertension, CAD, previous AL with stents, who was brought in to the ED reporting suicide ideation with plan to walk into traffic in the context of recent substance intoxication which patient was put under Baptiste act and admitted to the inpatient psychiatry for further evaluation and management. Patient was found lying hospital bed noted, cooperative. Patient states that he had let people down when he would "do something illness supposed to do), referring to his recent relapse into substance use. Patient states for the past month he had been feeling depressed, with decreased motivation, sleep, energy, concentration , and feeling hopeless along with suicide ideation for the past week with no specific plan. Patient denies any manic or psychotic symptoms denies any perceptional service of delusions at this time. Patient reports that his main stressors have been contributing to his current depressed mood have been his drug use, family discord, being unemployed, and chronic medical issues. Family psychiatric history: Denies Past psychiatric history: Self-reported diagnosis of anxiety, no previous psychiatric admissions, no previous suicide attempt or self-injurious behavior. Patient denies any history of abuse. Patient with no mental health outpatient follow-up provider, but states he has a primary care doctor. Substance use history: Alcohol use "sometimes", 2 times per week usually 4 drinks at a time, cocaine use every 2-3 months, marijuana use daily for the past 6 months, usually for joint at a time. Patient denies any previous detox or rehabs. Past medical history: Hypertension, CAD, previous AL in 2006 and recently in 2018 with stent placement. Allergies: NKDA, milk Social history: with 3 adult children, domiciled with mother, unemployed. Patient is legal history significant for usp in 1997 2001 for drug related charges. Collateral contact his mother, Yuni Hutchinson (no number provided as patient does not want mother involved in his care at this time). Review of Systems Except as stated in HPI: all other systems reviewed are Neg Past Psych History Psychological trauma history Denies Violence risk - others (6 mos) Low Violence risk - self (6 mos) Elevated due to recent suicide ideation Substance Abuse History Drugs/Alcohol past 12 months Alcohol use "sometimes", 2 times per week usually 4 drinks at a time, cocaine use every 2-3 months, marijuana use daily for the past 6 months, usually for joint at a time. Patient denies any previous detox or rehabs. Past Family Social History Coded Allergies: milk (Unverified Allergy, Unknown, Nausea/Vomiting, 12/08/17) Per pt. Active Scripts Metoprolol Tartrate (Metoprolol Tartrate) 25 Mg Tab, 25 MG PO DAILY for Blood Pressure Management, #30 TAB 1 Refill Prov:Cyndy Lawton STREET PHOTOGRAPHER 10/29/16 Clopidogrel (Plavix) 75 Mg Tab, 75 MG PO DAILY for Blood Clot Prevention, #30 TAB 1 Refill Prov:Cyndy LawtonP 10/29/16 Reported Medications Losartan (Losartan) 50 Mg Tab, 50 MG PO DAILY for Blood Pressure Management, # 30 TAB 0 Refills 12/08/17 Atorvastatin (Atorvastatin) 40 Mg Tab, 40 MG PO HS for Cholesterol Management, # 30 TAB 0 Refills 12/08/17 Amlodipine (Amlodipine) 5 Mg Tab, 5 MG PO HS for Blood Pressure Management, #30 TAB 0 Refills 12/08/17 Aspirin (Aspirin Childrens) 81 Mg Chew, 81 MG CHEW DAILY, TAB 10/28/16 Current Medications Medications (Trade) Dose Ordered Sig/Kyaw Route Start Time Stop Time Status Last Admin (Tylenol) 650 mg Q4H PRN PO 12/08/17 19:45 (Milk Of Magnesia Liq) 30 ml DAILY PRN PO 12/08/17 19:45 (Mag-Al Plus Susp Liq) 30 ml Q6H PRN PO 12/08/17 19:45 (Habitrol 21 Mg Patch.24 Hr) 1 patch DAILY T-DERMAL 12/09/17 09:00 12/09/17 08:32 Miscellaneous Information 1 DAILY T-DERMAL 12/09/17 09:00 (Norvasc) 5 mg HS PO 12/09/17 21:00 (Aspirin Chew) 81 mg DAILY CHEW 12/09/17 12:00 12/09/17 12:21 (Lipitor) 40 mg HS PO 12/09/17 21:00 (Plavix) 75 mg DAILY PO 12/09/17 12:00 12/09/17 12:21 (Cozaar) 50 mg DAILY PO 12/09/17 12:00 12/09/17 12:21 (Lopressor) 25 mg DAILY PO 12/09/17 11:00 12/09/17 12:20 (Zoloft) 50 mg DAILY PO 12/10/17 09:00 (Pill Splitter) 1 ea UNSCH PRN OTHER 12/09/17 11:45 Family Psych History Denies Social History with 3 adult children, domiciled with mother, unemployed. Patient is legal history significant for usp in 1997 2001 for drug related charges. Collateral contact his mother, Ynui Hutchinson (no number provided as patient does not want mother involved in his care at this time). Patient's Strengths (min. 2) Verbal and communicative Physical Exam Patient not noted to be in acute distress, no gross motor abnormalities, no signs of tremor or EPS, no psychomotor agitation or retardation. Vital Signs Vital Signs Date Time Temp Pulse Resp B/P (MAP) Pulse Ox O2 Delivery O2 Flow Rate FiO2 12/09/17 06:34 98.2 95 18 143/71 (95) 96 12/08/17 18:44 Room Air Lab Results Labs reviewed Test 12/08/17 15:04 12/08/17 17:40 12/09/17 07:14 White Blood Count 8.3 TH/MM3 Red Blood Count 4.74 MIL/MM3 Hemoglobin 13.2 GM/DL Hematocrit 40.0 % Mean Corpuscular Volume 84.4 FL Mean Corpuscular Hemoglobin 27.8 PG Mean Corpuscular Hemoglobin Concent 32.9 % Red Cell Distribution Width 14.9 % Platelet Count 331 TH/MM3 Mean Platelet Volume 7.0 FL Neutrophils (%) (Auto) 63.9 % Lymphocytes (%) (Auto) 27.4 % Monocytes (%) (Auto) 7.2 % Eosinophils (%) (Auto) 1.3 % Basophils (%) (Auto) 0.2 % Neutrophils # (Auto) 5.3 TH/MM3 Lymphocytes # (Auto) 2.3 TH/MM3 Monocytes # (Auto) 0.6 TH/MM3 Eosinophils # (Auto) 0.1 TH/MM3 Basophils # (Auto) 0.0 TH/MM3 CBC Comment DIFF FINAL Differential Comment Blood Urea Nitrogen 12 MG/DL 12 MG/DL Creatinine 1.13 MG/DL 1.10 MG/DL Random Glucose 89 MG/DL 114 MG/DL Total Protein 7.4 GM/DL Albumin 3.6 GM/DL Calcium Level 8.5 MG/DL 8.4 MG/DL Alkaline Phosphatase 76 U/L Aspartate Amino Transf (AST/SGOT) 23 U/L Alanine Aminotransferase (ALT/SGPT) 27 U/L Total Bilirubin 0.4 MG/DL Sodium Level 138 MEQ/L 139 MEQ/L Potassium Level 3.7 MEQ/L 4.1 MEQ/L Chloride Level 102 MEQ/L 105 MEQ/L Carbon Dioxide Level 28.6 MEQ/L 27.6 MEQ/L Anion Gap 7 MEQ/L 6 MEQ/L Estimat Glomerular Filtration Rate 83 ML/MIN 86 ML/MIN Thyroid Stimulating Hormone 3rd Gen 0.928 uIU/ML Ethyl Alcohol Level LESS THAN 3 MG/DL Urine Opiates Screen NEG Urine Barbiturates Screen NEG Urine Amphetamines Screen NEG Urine Benzodiazepines Screen NEG Urine Cocaine Screen POS Urine Cannabinoids Screen POS Triglycerides Level 110 MG/DL Cholesterol Level 156 MG/DL LDL Cholesterol 88 MG/DL HDL Cholesterol 45.8 MG/DL Cholesterol/HDL Ratio 3.40 RATIO Mental Status Examination Appearance: Appropriate Consciousness: Alert Orientation: x4 Motor Activity: Other (Sitting on bed) Speech: Slow Language: Adequate Fund of Knowledge: Adequate Attention and Concentration: Adequate Memory: Unremarkable Mood: Sad, Other (Tearful) Affect: Sad Thought Process & Associations: Intact Thought Content: Appropriate Hallucination Type: None Delusion Type: None Suicidal Ideation: No Suicidal Plan: No Suicidal Intention: No Homicidal Ideation: No Homicidal Plan: No Homicidal Intention: No Insight: Fair Judgment: Impulsive Assessment & Plan Problem List: (1) Major depressive disorder, single episode, moderate degree ICD Codes: F32.1 - Major depressive disorder, single episode, moderate Status: Acute (2) Substance abuse ICD Codes: F19.10 - Substance abuse Status: Acute Assessment & Plan Estimated LOS: 3-5 days. Patient is a 52-year-old -[place] man recently admitted to recent suicide ideation in the context of substance intoxication and psychosocial stressors along with recent relapse into substance use after 6 months sobriety. Patient this time continues to endorse depressive symptoms along with suicide ideations. Patient will start sertraline 25 mg 1 and 50 mg p.o. daily thereafter for depression. Continue monitor mood and behavior. Social work intervention for psychosocial assessment. Discharge planning in progress. Discharge Planning Patient return back to his residence was psychiatrically stable. Patient interested a rehabilitation programs. Request HC Surrog/Guard Advoc?: Alejandro Condon MD Dec 09, 2017 14:05
--- NOTE | 2017-12-09 16:40 | EKG ---
Date Performed: 12/08/2017 Time Performed: 21:12:47 PTAGE: 52 years EKG: Sinus rhythm POSSIBLE INFERIOR MYOCARDIAL INFARCTION , PROBABLY OLD MODERATE T-WAVE ABNORMALITY, CONSIDER LATERAL ISCHEMIA Since previous tracing, no significant change noted ABNORMAL ECG PREVIOUS TRACING : 10/28/2016 20.38 DOCTOR: Tristian Payton Interpretating Date/Time 12/09/2017 16:38:53
[2017-12-09 17:38] LABS: HEMOGLOBIN A1C 6.6 % (4.3-6.0)
[2017-12-09 18:00] VITALS: BP 146/88; PULSE 72; RESP 18; TEMP 98.1; O2SAT 98
[2017-12-09] MEDS: ATORVASTATIN 40 MG TAB PO SCH (20:47)
[2017-12-09] MEDS ORDERED: amLODIPine BESYLATE 5 MG TAB PO SCH (21:00)
[2017-12-10 06:03] VITALS: BP 120/65; PULSE 73; RESP 20; TEMP 98; O2SAT 95
[2017-12-10] MEDS: REMOVE OLD PATCH T-DERMAL SCH (08:40)
[2017-12-10] MEDS: METOPROLOL TARTRATE 25 MG TAB PO SCH (08:40)
[2017-12-10] MEDS: LOSARTAN 50 MG TAB PO SCH (08:40)
[2017-12-10] MEDS: CLOPIDOGREL 75 MG TAB PO SCH (08:40)
[2017-12-10] MEDS: NICOTINE 21 MG/24 HR PATCH T-DERMAL SCH (08:40)
[2017-12-10] MEDS: SERTRALINE HCL 50 MG TAB PO SCH (08:40)
[2017-12-10] MEDS: ASPIRIN 81 MG CHEW TAB CHEW SCH (08:40)
[2017-12-10] MEDS: ACETAMINOPHEN 325 MG TAB PO PRN (08:45)
--- NOTE | 2017-12-10 12:14 | PD.CONS ---
HPI Service [facility] Consult Requested By Primary Care Physician Unknown Diagnoses: History of Present Illness History from patient, and review of medical records. Patient is admitted to inpatient psychiatry unit for suicidal ideation. Medical team was consulted for management of his comorbid conditions. Patient reported that he was at [employer] and he called 911 because he was feeling suicidal. He initially took him to [facility]. However [facility] [place] came here to the hospital because he is on Plavix and they do not give Plavix there. Patient reports that he has history of coronary artery disease with a total of 3 stents placed. His latest stent was in September 2017 at [facility]. On review of system, patient reports of urinary hesitancy and frequency for past few months. Especially at nighttime. He also reports of burning urination. He suspects that he is having enlarged prostate. He denies any fever. Denies seeing any blood in his urine. Apart from the above, patient denies any chest pain/palpitations/shortness of breath/focal weakness/dizziness/syncope. Denies any nausea/vomiting/diarrhea. Denies any abdominal pains. Denies any calf asymmetry or edema. Review of Systems Except as stated in HPI: all other systems reviewed are Neg Past Family Social History Allergies: Coded Allergies: milk (Unverified Allergy, Unknown, Nausea/Vomiting, 12/08/17) Per pt. Past Medical History Hypertension Hyperlipidemia Obesity CADstatus post cardiac stents. First stent was in 2004. Subsequent 2 stents was in September 2017. Denies history of CHF/atrial fibrillation. CVA in 2014. Denies any history of seizures/thyroid problem/cancers. Past Surgical History Left knee arthrocentesis is arthroscopic surgery in 2001 Coronary angiogram and stenting Left eye cataract surgery Family History Father had DE Grandmother with cancer he is not sure which type Social History Smokes about half a pack a day. Drinks alcohol only when he meets with friends or on weekends. Each time he would drink about 4 shots. Denies any drug abuse in terms of IV drugs. However admit to using marijuana and cocaine. Physical Exam Vital Signs Vital Signs Date Time Temp Pulse Resp B/P (MAP) Pulse Ox O2 Delivery O2 Flow Rate FiO2 12/10/17 06:03 98.0 73 20 120/65 (83) 95 12/09/17 18:00 98.1 72 18 146/88 (107) 98 Physical Exam GENERAL: This is a well-nourished, well-developed patient, in no apparent distress. SKIN: No rashes, ecchymoses or lesions. Cool and dry. HEAD: Atraumatic. Normocephalic. No temporal or scalp tenderness. EYES: No scleral icterus. No injection or drainage. left eye strabismus ENT: Nose without bleeding, purulent drainage or septal hematoma. Airway patent. NECK: Trachea midline. No JVD . Supple, nontender, no meningeal signs. CARDIOVASCULAR: Regular rate and rhythm without murmurs, gallops, or rubs. RESPIRATORY: Clear to auscultation. Breath sounds equal bilaterally. No wheezes , rales, or rhonchi. GASTROINTESTINAL: Abdomen soft, non-tender, nondistended. No guarding. MUSCULOSKELETAL: Extremities without clubbing, cyanosis, or edema. No calf tenderness. NEUROLOGICAL: Awake and alert. Motor and sensory grossly within normal limits. Normal speech. Result Diagram: 12/08/17 1504 12/09/17 0714 Assessment and Plan Assessment and Plan Impression: Suicidal ideation. Management per psychiatry. Urinary burning/hesitancy/frequency. Suspect underlying BPH. Possible UTI. Hypertension Hyperlipidemia Obesity CADstatus post cardiac stents. First stent was in 2004. Subsequent 2 stents was in September 2017. Denies history of CHF/atrial fibrillation. CVA in 2014. Plan: We will send UA and urine culture if indicated. Ultrasound of the prostate/kidney/bladder. If there is evidence of infection on UA, will start patient on antibiotics. There is evidence of BPH on ultrasound, we will start him on Flomax/Proscar. Patient has been restarted back on his aspirin and Plavix. There is order also been written to call his pharmacy [facility] to verify his medications again. DVT prophylaxis with ambulation. Discussed Condition With Patient Familia Arndt MD Dec 10, 2017 12:14
[2017-12-10] MEDS ORDERED: ACETAMINOPHEN/CODEINE 300 MG/30 MG TAB PO PRN (13:15)
--- NOTE | 2017-12-10 14:16 | HHI.PYPN ---
Subjective Remarks Patient seen for follow, chart reviewed. Discussion nursing staff reported the patient continues report feeling depressed but denying suicide ideations today. Patient was found lying hospital bed noted to be calm and cooperative. Patient states that he is feeling "a little better" per continues report feeling depressed and denying any suicide ideations today. patient mentions having been contemplating on his recent relapse and to feel motivated to engage in rehabilitation program which he discussed at length with counselor. Patient states that this morning he was feeling a bit tearful and depressed thinking about his current circumstances but is motivated to continue to do better. Patient attending groups today. Review of Systems Except as stated in HPI: all other systems reviewed are Neg Mental Status Examination Appearance: Appropriate Consciousness: Alert Orientation: x4 Motor Activity: Other (Sitting on bed) Speech: Slow Language: Adequate Fund of Knowledge: Adequate Attention and Concentration: Adequate Memory: Unremarkable Mood: Sad, Other (Tearful) Affect: Sad Thought Process & Associations: Intact Thought Content: Appropriate Hallucination Type: None Delusion Type: None Suicidal Ideation: Yes (Denies today) Suicidal Plan: No Suicidal Intention: No Homicidal Ideation: No Homicidal Plan: No Homicidal Intention: No Insight: Fair Judgment: Impulsive Results Vitals/IOs Vital Signs Date Time Temp Pulse Resp B/P (MAP) Pulse Ox O2 Delivery O2 Flow Rate FiO2 12/10/17 06:03 98.0 73 20 120/65 (83) 95 12/08/17 18:44 Room Air Assessment & Plan Problem List: (1) Major depressive disorder, single episode, moderate degree ICD Codes: F32.1 - Major depressive disorder, single episode, moderate Status: Acute (2) Substance abuse ICD Codes: F19.10 - Substance abuse Status: Acute Assessment & Plan Patient at this time continues report feeling depressed, denies any suicide ideations today. Patient continues to be dysphoric and tearful. Social increase to 50 mg p.o. daily for depression. Continue rest of medications. Hospitalist input appreciated. Continue monitor with behavior. Discharge planning in progress. Justification for Cont. Inpt. At risk for further decompensation if at lower level of care Discharge Planning To be determined Request HC Surrog/Guard Advoc?: Alejandro Condon MD Dec 10, 2017 14:16
--- NOTE | 2017-12-10 16:58 | RADRPT ---
EXAM DATE/TIME: 12/10/2017 15:04 [facility] COMPARISON: No previous studies available for comparison. INDICATIONS : Increased lab values. MEDICAL HISTORY : Myocardial infarction. Hypercholesterolemia. Hypertension. Seizures. Diabetes. SURGICAL HISTORY : Left eye surgery. Left knee surgery. ENCOUNTER: Initial ACUITY: 1 day PAIN SCORE: 0/10 LOCATION: Bilateral flank MEASUREMENTS: RIGHT KIDNEY: 10.1 x 6.0 x 6.7 cm LEFT KIDNEY: 13.2 x 6.3 x 6.6 cm FINDINGS: RIGHT KIDNEY: Renal cortex is normal in thickness and echotexture. No hydronephrosis, stone, or mass. LEFT KIDNEY: Renal cortex is normal in thickness and echotexture. No hydronephrosis, stone, or mass. BLADDER: Within normal limits given the degree of distension. CONCLUSION: 1. Unremarkable renal ultrasound examination. Specifically, no evidence for obstructive uropathy. Seun Hansen MD on December 10, 2017 at 16:55 Board Certified Radiologist. This report was verified electronically.
[2017-12-10 20:23] LABS: BILIRUBIN, URINE NEG (NEG); BLOOD, URINE NEG (NEG); GLUCOSE,URINE NEG (NEG); KETONE, URINE NEG (NEG); MUCUS URINE FEW /lpf (OCC); NITRITE,URINE NEG (NEG); PH, URINE 5.5 (5.0-8.5); SQUAMOUS EPITHELIAL CELL URINE <1 /hpf (0-5); URINE COLOR YELLOW (YELLW/STRAW); URINE LEUKOCYTE ESTERASE TRACE (NEG)
[2017-12-10] MEDS: ATORVASTATIN 40 MG TAB PO SCH (20:55)
[2017-12-10] MEDS ORDERED: diphenhydrAMINE HCL 50 MG CAP PO PRN (21:00)
[2017-12-10] MEDS: hydrOXYzine HCL 50 MG TAB PO PRN (21:55)
[2017-12-11 05:34] VITALS: BP 124/66; PULSE 73; RESP 18; TEMP 98.2; O2SAT 96
[2017-12-11] MEDS: NICOTINE 21 MG/24 HR PATCH T-DERMAL SCH (09:00)
[2017-12-11] MEDS: REMOVE OLD PATCH T-DERMAL SCH (09:00)
[2017-12-11] MEDS: SERTRALINE HCL 50 MG TAB PO SCH (09:25)
[2017-12-11] MEDS: LOSARTAN 50 MG TAB PO SCH (09:25)
[2017-12-11] MEDS: ASPIRIN 81 MG CHEW TAB CHEW SCH (09:25)
[2017-12-11] MEDS: CLOPIDOGREL 75 MG TAB PO SCH (09:25)
[2017-12-11] MEDS: METOPROLOL TARTRATE 25 MG TAB PO SCH (09:26)
--- NOTE | 2017-12-11 15:33 | HHI.PYPN ---
Subjective Remarks Patient seen for follow up; chart reviewed. Discussion with nursing staff reported that the patient not endorsing AH, noted to be seclusive, and was upset that his mother was allowed to be aware that he was in the hospital. Patient was found returning back to the unit from group activity. He was noted to be dysphoric, stating that he was upset last night that his mother was aware he was in the hospital and that she would let the rest of his family know he was here. He states that feeling depressed last evening due to this and this morning as well. He reports having had difficulty with sleep last night but having any suicidal ideations today. Review of Systems Except as stated in HPI: all other systems reviewed are Neg Mental Status Examination Appearance: Appropriate Consciousness: Alert Orientation: x4 Motor Activity: Other (Sitting on bed) Speech: Slow Language: Adequate Fund of Knowledge: Adequate Attention and Concentration: Adequate Memory: Unremarkable Mood: Sad Affect: Sad, Other (dysphoric) Thought Process & Associations: Intact, Goal directed Thought Content: Appropriate Hallucination Type: None Delusion Type: None Suicidal Ideation: Yes (Denies today) Suicidal Plan: No Suicidal Intention: No Homicidal Ideation: No Homicidal Plan: No Homicidal Intention: No Insight: Fair Judgment: Impulsive Results Labs labs reviewed Test 12/10/17 18:11 Urine Color YELLOW Urine Turbidity CLEAR Urine pH 5.5 Urine Specific [place] 1.026 Urine Protein NEG mg/dL Urine Glucose (UA) NEG mg/dL Urine Ketones NEG mg/dL Urine Occult Blood NEG Urine Nitrite NEG Urine Bilirubin NEG Urine Urobilinogen 2.0 MG/DL Urine Leukocyte Esterase TRACE Urine RBC 1 /hpf Urine WBC 6 /hpf Urine Squamous Epithelial Cells <1 /hpf Urine Mucus FEW /lpf Microscopic Urinalysis Comment CULT NOT INDICATED Vitals/IOs Vital Signs Date Time Temp Pulse Resp B/P (MAP) Pulse Ox O2 Delivery O2 Flow Rate FiO2 12/11/17 05:34 98.2 73 18 124/66 (85) 96 12/08/17 18:44 Room Air Intake and Output 12/11/17 12/11/17 12/12/17 08:00 16:00 00:00 Intake Total 720 ml Balance 720 ml Assessment & Plan Problem List: (1) Major depressive disorder, single episode, moderate degree ICD Codes: F32.1 - Major depressive disorder, single episode, moderate Status: Acute (2) Substance abuse ICD Codes: F19.10 - Substance abuse Status: Acute Assessment & Plan Patient continues to appear dysphoric, with feelings of guilt due to his recent relapse and feeling depressed but denies SI. Sertraline was recently increased , will continue current regimen for now. Patient continues with sleep disturbances, will have diphenhydramine 50mg PO HS. Patient recommended sober living facility upon discharge which he is considering. Continue to monitor mood and behavior. Discharge planning in progress. Justification for Cont. Inpt. At risk for further decompensation if at lower level of care Request HC Surrog/Guard Advoc?: No Alejandro Morton MD Dec 11, 2017 15:33
[2017-12-11 17:58] VITALS: BP 169/98; PULSE 66; RESP 18; TEMP 98; O2SAT 98
[2017-12-11] MEDS ORDERED: diphenhydrAMINE HCL 50 MG CAP PO SCH (21:00)
[2017-12-11] MEDS: ATORVASTATIN 40 MG TAB PO SCH (21:03)
[2017-12-12 06:12] VITALS: BP 156/90; PULSE 66; RESP 18; TEMP 97.3; O2SAT 98
[2017-12-12] MEDS: NICOTINE 21 MG/24 HR PATCH T-DERMAL SCH (09:00)
[2017-12-12] MEDS: REMOVE OLD PATCH T-DERMAL SCH (09:00)
[2017-12-12] MEDS: SERTRALINE HCL 50 MG TAB PO SCH (09:41)
[2017-12-12] MEDS: METOPROLOL TARTRATE 25 MG TAB PO SCH (09:41)
[2017-12-12] MEDS: CLOPIDOGREL 75 MG TAB PO SCH (09:41)
[2017-12-12] MEDS: ASPIRIN 81 MG CHEW TAB CHEW SCH (09:41)
[2017-12-12] MEDS: LOSARTAN 50 MG TAB PO SCH (09:41)
--- NOTE | 2017-12-12 17:00 | HHI.PYPN ---
Subjective Remarks Patient seen for follow, chart reviewed. Discussion nursing staff reported the patient noted to feel better continues report feeling depressed and seclusive. Patient was found ambulating on unit to become cooperative. Patient states that he feels a difference but was unable to specify. Patient states that he feels "slowed down a bit" but continues to be motivated about continue to rehabilitation/sober living upon discharge. Patient reports continuing to have difficulty with sleep despite taking Benadryl at night. Patient continues report feeling depressed but denies any suicide ideations at this time. Patient continues to be noted to be dysphoric and continues to have isolated behavior on the unit. Review of Systems Except as stated in HPI: all other systems reviewed are Neg Mental Status Examination Appearance: Appropriate Consciousness: Alert Orientation: x4 Motor Activity: Other (Sitting on bed) Speech: Slow Language: Adequate Fund of Knowledge: Adequate Attention and Concentration: Adequate Memory: Unremarkable Mood: Sad Affect: Sad, Other (dysphoric) Thought Process & Associations: Intact, Goal directed Thought Content: Appropriate Hallucination Type: None Delusion Type: None Suicidal Ideation: Yes (Denies today) Suicidal Plan: No Suicidal Intention: No Homicidal Ideation: No Homicidal Plan: No Homicidal Intention: No Insight: Fair Judgment: Impulsive Results Vitals/IOs Vital Signs Date Time Temp Pulse Resp B/P (MAP) Pulse Ox O2 Delivery O2 Flow Rate FiO2 12/12/17 06:12 97.3 66 18 156/90 (112) 98 12/08/17 18:44 Room Air Assessment & Plan Problem List: (1) Major depressive disorder, single episode, moderate degree ICD Codes: F32.1 - Major depressive disorder, single episode, moderate Status: Acute (2) Substance abuse ICD Codes: F19.10 - Substance abuse Status: Acute Assessment & Plan Patient this time continues report feeling depressed but appears to start having some improvement in his mood although unspecified as per patient. Patient continues to have difficulty sleep. We will discontinue diphenhydramine , will start trazodone 50 mg p.o. at bedtime for sleep disturbance. Continue to monitor mood and behavior. Discharge planning in progress. Justification for Cont. Inpt. At risk for further decompensation if at lower level of care Request HC Surrog/Guard Advoc?: Alejandro Condon MD Dec 12, 2017 17:00
[2017-12-12 17:19] VITALS: BP 149/86; PULSE 69; RESP 18; TEMP 98.2; O2SAT 96
[2017-12-12] MEDS ORDERED: GLUCAGON 1 MG/ML VIAL OTHER PRN (18:15)
[2017-12-12] MEDS ORDERED: cloNIDine HCL 0.1 MG TAB PO PRN (18:15)
[2017-12-12] MEDS ORDERED: DEXTROSE 50% IN WATER 50 ML VIAL(D50) IV PUSH PRN (18:15)
--- NOTE | 2017-12-12 18:54 | HHI.PR ---
Subjective Remarks Resting comfortably in bed No event overnight Denied chest and or short of breath No fever or chills Objective Vitals Vital Signs Date Time Temp Pulse Resp B/P (MAP) Pulse Ox O2 Delivery O2 Flow Rate FiO2 12/12/17 17:19 98.2 69 18 149/86 (107) 96 12/12/17 06:12 97.3 66 18 156/90 (112) 98 I/O 12/11/17 12/11/17 12/11/17 12/12/17 12/12/17 12/12/17 07:00 15:00 23:00 07:00 15:00 23:00 Intake Total 720 ml 720 ml Balance 720 ml 720 ml Intake Oral 720 ml 720 ml Result Diagram: 12/08/17 1504 12/09/17 0714 Objective Remarks GENERAL: This is a well-nourished, well-developed patient, in no apparent distress. CARDIOVASCULAR: RRR, no gallops, or rubs. RESPIRATORY: Fair air entry bilaterally. No W, R, or R GASTROINTESTINAL: Abdomen soft, non-tender, nondistended. Positive bowel sounds MUSCULOSKELETAL: Extremities without clubbing, cyanosis, or edema. Pedal pulses appreciated NEUROLOGICAL: Awake and alert. Moves all extremity. Normal speech.no focal neurological deficit A/P Assessment and Plan Suicidal ideation. Management per psychiatry. Hypertension Hyperlipidemia Obesity Borderline diabetes mellitus A1c 6.6 CADstatus post cardiac stents. First stent was in 2004. Subsequent 2 stents was in September 2017. Denies history of CHF/atrial fibrillation. CVA in 2014. Plan: Accu-Chek with insulin sliding scale low level BPH on ultrasound, we will start him on Flomax/Proscar. Patient has been restarted back on his aspirin and Plavix. Patient seems to be stable from medical standpoint will sign off and follow as needed Tamara Jennings MD Dec 12, 2017 18:54
[2017-12-12] MEDS: traZODone HCL 50 MG TAB PO SCH (21:17)
[2017-12-12] MEDS: INSULIN ASPART SUPPLEMENTAL SCALE SQ SCH (21:19)
[2017-12-12] MEDS: ATORVASTATIN 40 MG TAB PO SCH (21:35)
[2017-12-12] MEDS: hydrOXYzine HCL 50 MG TAB PO PRN (21:37)
[2017-12-13 06:20] VITALS: BP 151/87; PULSE 79; RESP 18; TEMP 98.2; O2SAT 96
[2017-12-13] MEDS: INSULIN ASPART SUPPLEMENTAL SCALE SQ SCH ×4 (07:50→21:00)
[2017-12-13] MEDS: REMOVE OLD PATCH T-DERMAL SCH (09:00)
[2017-12-13] MEDS: NICOTINE 21 MG/24 HR PATCH T-DERMAL SCH (09:00)
[2017-12-13] MEDS: ASPIRIN 81 MG CHEW TAB CHEW SCH (09:10)
[2017-12-13] MEDS: SERTRALINE HCL 50 MG TAB PO SCH (09:10)
[2017-12-13] MEDS: LOSARTAN 50 MG TAB PO SCH (09:10)
[2017-12-13] MEDS: METOPROLOL TARTRATE 25 MG TAB PO SCH (09:10)
[2017-12-13] MEDS: CLOPIDOGREL 75 MG TAB PO SCH (09:10)
--- NOTE | 2017-12-13 12:11 | HHI.PYPN ---
Subjective Remarks Reviewed electronic medical record, labs, and discussed case with staff. Follow -up was performed in patient's room. Patient was found in day room and ambulated without difficulty to his room. He reports that his mood is "a little better". His affect is euthymic today. He reported to nursing staff that he was looking forward to rehab and expressed this to me as well. He states that he did not sleep well last night however, the consent for his trazodone had not been signed it is now. He was informed that he could requested this evening. He states that his appetite is okay. He denies suicidal ideation, homicidal ideation, auditory or visual hallucinations. Can elicit no delusional material at this time. Mental Status Examination Appearance: Appropriate Consciousness: Alert Orientation: x4 Motor Activity: Other (Sitting on bed) Speech: Slow Language: Adequate Fund of Knowledge: Adequate Attention and Concentration: Adequate Memory: Unremarkable Mood: Sad Affect: Sad, Other (dysphoric) Thought Process & Associations: Intact, Goal directed Thought Content: Appropriate Hallucination Type: None Delusion Type: None Suicidal Ideation: Yes (Denies today) Suicidal Plan: No Suicidal Intention: No Homicidal Ideation: No Homicidal Plan: No Homicidal Intention: No Insight: Fair Judgment: Impulsive Results Vitals/IOs Vital Signs Date Time Temp Pulse Resp B/P (MAP) Pulse Ox O2 Delivery O2 Flow Rate FiO2 12/13/17 06:20 98.2 79 18 151/87 (108) 96 Assessment & Plan Problem List: (1) Major depressive disorder, single episode, moderate degree ICD Codes: F32.1 - Major depressive disorder, single episode, moderate Status: Acute (2) Substance abuse ICD Codes: F19.10 - Substance abuse Status: Acute Assessment & Plan Estimated LOS: Patient's mood continues to improve. Discharge planning has begun. Justification for Cont. Inpt. Moving this patient to a lower level of care at this time would likely result in decompensation. Request HC Surrog/Guard Advoc?: No Stephy Alex Dec 13, 2017 12:11
[2017-12-13] MEDS: hydrOXYzine HCL 50 MG TAB PO PRN (18:07)
[2017-12-13 18:22] VITALS: BP 157/87; PULSE 71; RESP 17; TEMP 98.2; O2SAT 98
[2017-12-13] MEDS: ATORVASTATIN 40 MG TAB PO SCH (21:53)
[2017-12-13] MEDS: traZODone HCL 50 MG TAB PO SCH (21:53)
[2017-12-13] MEDS: ACETAMINOPHEN 325 MG TAB PO PRN (21:54)
[2017-12-14 06:17] VITALS: BP 130/71; PULSE 71; RESP 18; TEMP 97.5; O2SAT 95
[2017-12-14] MEDS: INSULIN ASPART SUPPLEMENTAL SCALE SQ SCH ×4 (07:26→21:00)
[2017-12-14] MEDS: REMOVE OLD PATCH T-DERMAL SCH (09:00)
[2017-12-14] MEDS: NICOTINE 21 MG/24 HR PATCH T-DERMAL SCH (09:00)
[2017-12-14] MEDS: ASPIRIN 81 MG CHEW TAB CHEW SCH (09:45)
[2017-12-14] MEDS: CLOPIDOGREL 75 MG TAB PO SCH (09:45)
[2017-12-14] MEDS: SERTRALINE HCL 50 MG TAB PO SCH (09:45)
[2017-12-14] MEDS: METOPROLOL TARTRATE 25 MG TAB PO SCH (09:45)
[2017-12-14] MEDS: LOSARTAN 50 MG TAB PO SCH (09:45)
--- NOTE | 2017-12-14 17:19 | HHI.PR ---
Addendum to Inpatient Note Additional Information [facility] w[facility] , i will dc [facility] , pt to ff with pcp post dc we will s/o will be available as needed Tamara Jennings MD Dec 14, 2017 17:19
--- NOTE | 2017-12-14 18:28 | HHI.PYPN ---
Subjective Remarks Reviewed electronic medical record and discussed case with staff. Follow-up was conducted in patient's room with nurse present. Patient's mood is good his affect is euthymic. He reports that "today has been a good day". He states that he slept well and had a good appetite. He denies having any suicidal ideation, homicidal ideation, visual or auditory hallucinations. He reports looking forward to entering a rehab. Discussed having a rn radiology and unit educator speak with him, patient is open to that. Mental Status Examination Appearance: Appropriate Consciousness: Alert Orientation: x4 Motor Activity: Other (Sitting on bed) Speech: Slow Language: Adequate Fund of Knowledge: Adequate Attention and Concentration: Adequate Memory: Unremarkable Mood: Appropriate Affect: Euthymic, Other (dysphoric) Thought Process & Associations: Intact, Goal directed Thought Content: Appropriate Hallucination Type: None Delusion Type: None Suicidal Ideation: No Suicidal Plan: No Suicidal Intention: No Homicidal Ideation: No Homicidal Plan: No Homicidal Intention: No Insight: Fair Judgment: Impulsive Results Vitals/IOs Vital Signs Date Time Temp Pulse Resp B/P (MAP) Pulse Ox O2 Delivery O2 Flow Rate FiO2 12/14/17 06:17 97.5 71 18 130/71 (90) 95 Assessment & Plan Problem List: (1) Major depressive disorder, single episode, moderate degree ICD Codes: F32.1 - Major depressive disorder, single episode, moderate Status: Acute (2) Substance abuse ICD Codes: F19.10 - Substance abuse Status: Acute Assessment & Plan Estimated LOS: Patient reports feeling much better. Discharge planning in progress. Days Justification for Cont. Inpt. Moving patient to a lower level of care would likely result in decompensation. Discharge planning is in progress. Request HC Surrog/Guard Advoc?: No Stephy Alex Dec 14, 2017 18:27
[2017-12-14 18:35] VITALS: BP 156/70; PULSE 73; RESP 18; TEMP 98.1; O2SAT 93
[2017-12-14] MEDS: traZODone HCL 50 MG TAB PO SCH (21:49)
[2017-12-14] MEDS: ATORVASTATIN 40 MG TAB PO SCH (21:50)
[2017-12-15 06:09] VITALS: BP 141/80; PULSE 77; RESP 18; TEMP 97.5; O2SAT 96
[2017-12-15] MEDS: INSULIN ASPART SUPPLEMENTAL SCALE SQ SCH ×3 (08:00→16:29)
[2017-12-15] MEDS: REMOVE OLD PATCH T-DERMAL SCH (09:00)
[2017-12-15] MEDS: CLOPIDOGREL 75 MG TAB PO SCH (09:07)
[2017-12-15] MEDS: LOSARTAN 50 MG TAB PO SCH (09:07)
[2017-12-15] MEDS: SERTRALINE HCL 50 MG TAB PO SCH (09:07)
[2017-12-15] MEDS: ASPIRIN 81 MG CHEW TAB CHEW SCH (09:07)
[2017-12-15] MEDS: METOPROLOL TARTRATE 25 MG TAB PO SCH (09:07)
[2017-12-15] MEDS: NICOTINE 21 MG/24 HR PATCH T-DERMAL SCH (09:08)
[2017-12-15] MEDS ORDERED: ATOR40TA16 PO (13:23)
[2017-12-15] MEDS ORDERED: METO25TA3 PO (13:23)
[2017-12-15] MEDS ORDERED: ASPI81CH5 CHEW (13:23)
[2017-12-15] MEDS ORDERED: ZOLO50TA PO (13:23)
[2017-12-15] MEDS ORDERED: LOSA50TA PO (13:23)
[2017-12-15] MEDS ORDERED: TRAZ50TA12 PO (13:23)
[2017-12-15] MEDS ORDERED: PLAV75TA29 PO (13:23)
--- NOTE | 2017-12-15 13:23 | HHI.DS ---
Psychiatry Discharge Summary Inpatient Psychiatric care?: Yes Advance Directive: No Reason Not Provided: not interested Mental Health AdvanceDirective: No Health Care Proxy: No Admission Admission Date Dec 08, 2017 at 19:46 Admission Diagnosis: (1) Major depressive disorder, single episode, moderate degree ICD Code: F32.1 - Major depressive disorder, single episode, moderate (2) Substance abuse ICD Code: F19.10 - Substance abuse Brief History Patient is a 52-year-old -Guy[place] man, with 3 adult children, domiciled with mother, unemployed, with a past psychiatric history of anxiety, no previous psychiatric admissions, no previous suicide attempt or self injurious behavior, with the substance use history significant for marijuana and cocaine use disorder with a past medical history of hypertension, CAD, previous VA with stents, who was brought in to the ED reporting suicide ideation with plan to walk into traffic in the context of recent substance intoxication which patient was put under Baptiste act and admitted to the inpatient psychiatry for further evaluation and management. Patient was found lying hospital bed noted, cooperative. Patient states that he had let people down when he would "do something illness supposed to do), referring to his recent relapse into substance use. Patient states for the past month he had been feeling depressed, with decreased motivation, sleep, energy, concentration , and feeling hopeless along with suicide ideation for the past week with no specific plan. Patient denies any manic or psychotic symptoms denies any perceptional service of delusions at this time. Patient reports that his main stressors have been contributing to his current depressed mood have been his drug use, family discord, being unemployed, and chronic medical issues. Family psychiatric history: Denies Past psychiatric history: Self-reported diagnosis of anxiety, no previous psychiatric admissions, no previous suicide attempt or self-injurious behavior. Patient denies any history of abuse. Patient with no mental health outpatient follow-up provider, but states he has a primary care doctor. Substance use history: Alcohol use "sometimes", 2 times per week usually 4 drinks at a time, cocaine use every 2-3 months, marijuana use daily for the past 6 months, usually for joint at a time. Patient denies any previous detox or rehabs. Past medical history: Hypertension, CAD, previous VA in 2007 and recently in 2018 with stent placement. Allergies: NKDA, milk Social history: with 3 adult children, domiciled with mother, unemployed. Patient is legal history significant for fci in 1997 2001 for drug related charges. Collateral contact his mother, Yuni Hutchinson (no number provided as patient does not want mother involved in his care at this time). Tobacco Use In Past 30 Days: 5 or More Cigarettes/Day Alcohol Use: 2-3 Times Per Week Hospital Course Patient is a 52-year-old -Guyanese man, with 3 adult children, domiciled with mother, unemployed, with a past psychiatric history of anxiety, no previous psychiatric admissions, no previous suicide attempt or self injurious behavior, with the substance use history significant for marijuana and cocaine use disorder with a past medical history of hypertension, CAD, previous VA with stents, who was brought in to the ED reporting suicide ideation with plan to walk into traffic in the context of recent substance intoxication which patient was put under Baptiste act and admitted to the inpatient psychiatry for further evaluation and management. Patient was started on sertraline and titrated up to 75mg PO daily and trazodone 50mg PO HS which he tolerated well and noted to be calm and cooperative with staff. Patient was noted to have improvement in mood, fair insight into the degree of substance use. He was observed by staff to not have had any behavioral disturbances, not having made any suicidal or homicidal statements and maintained stable mood through admission and was noted to interact with staff adequately. Patient reported feeling future oriented and motivated to re- engage in work and consider engaging in rehabilitation program for substance use. Upon discharge patient stated that she was feeling good, reported well with the treatment, as well as motivation to continue recommendations and denied any SI, HI, perceptual disturbances or delusions. Weighing the acute, chronic, and protective factors and based on the available evidence, I home lighting adviser to a reasonable degree of medical certainty that the patient is at low imminent risk of harm to self or others from a mental illness as defined under the Baptiste act and her level of function is adequate as observed on the unit for planned level of outpatient care. He was counseled regarding warning signs for need to return to the psychiatric emergency room as part of a general safety plan. Patient advised to call 911 or go nearest ED in case of emergency. Patient agreed with plan. Results Blood Pressure 141 / 80 Vital Signs Date Time Temp Pulse Resp B/P (MAP) Pulse Ox O2 Delivery O2 Flow Rate FiO2 12/15/17 06:09 97.5 77 18 141/80 (100) 96 Laboratory Results Test 12/09/17 07:14 Cholesterol Level 156 MG/DL (120-200) HDL Cholesterol 45.8 MG/DL (40.0-60.0) Hemoglobin A1c 6.6 % (4.3-6.0) LDL Cholesterol 88 MG/DL (0-99) Triglycerides Level 110 MG/DL (42-150) Summary of Procedures none Imaging Last Impressions Renal Ultrasound 12/10/17 0000 Signed Impressions: Service Date/Time: Sunday, December 10, 2017 15:04 - CONCLUSION: 1. Unremarkable renal ultrasound examination. Specifically, no evidence for obstructive uropathy. Seun Hansen MD Pending results at discharge: No Medications # of Antipsychotic meds at D/C: 0 Approp Antipsych med options 1 - Minimum of three failed multiple trials of monotherapy. 2 - Documented plan to taper to monotherapy due to previous use of multiple meds OR cross-taper in progress at D/C. 3 - Documentation of augmentation of Clozapine. 4 - Justification other than those listed in allowable values 1-3, document here : Discharge Discharge Date: Dec 15, 2017 Discharge Diagnosis: (1) Major depressive disorder, single episode, moderate degree ICD Code: F32.1 - Major depressive disorder, single episode, moderate Status: Acute (2) Substance abuse ICD Code: F19.10 - Substance abuse Status: Acute Pt Condition on Discharge: Stable Discharge Disposition: Discharge Home Discharge Instructions Diet Instructions: Heart Healthy Diet Scheduled Appointment: German Aleman Appointment Time: 8- 3 Discharge Time > 30 minutes Mental Status Examination Appearance: Appropriate Consciousness: Alert Orientation: x4 Motor Activity: Other (Sitting on bed) Speech: Slow Language: Adequate Fund of Knowledge: Adequate Attention and Concentration: Adequate Memory: Unremarkable Mood: Appropriate Affect: Euthymic Thought Process & Associations: Intact, Goal directed Thought Content: Appropriate Hallucination Type: None Delusion Type: None Suicidal Ideation: No Suicidal Plan: No Suicidal Intention: No Homicidal Ideation: No Homicidal Plan: No Homicidal Intention: No Insight: Fair Judgment: Impulsive Discharge/Advance Care Plan Health Problems: (1) Major depressive disorder, single episode, moderate degree (2) Substance abuse Goals to promote your health * To prevent worsening of your condition and complications * To maintain your health at the optimal level Directions to meet your goals Take your medications as prescribed Follow your dietary instruction Follow activity as directed Keep your appointments as scheduled Take your immunizations and boosters as scheduled If your symptoms worsen call your PCP, if no PCP go to Urgent Care Center or Emergency Room For 31/03 questions related to your inpatient stay or results of tests pending at discharge, please contact Dr. Alejandro Morton at Smoking is Dangerous to Your Health. Avoid second hand smoking Alejandro Morton MD Dec 15, 2017 13:23
--- NOTE | 2017-12-15 16:10 | PD.TTN ---
Patient Problems 1. Discharge planning 2. Medication compliance 3. Knowledge deficit 4. Lack of coping skills Progress Toward Goals Provider Present: Dr. Zeynep Morton Provider Input: 12/15/17 - Patient will be discharged home today. Psychiatric Counselors Present: HENNY Asif Psych Therapist Input: 12/15/17 - Patient sleeps frequently during the day. He remains calm and pleasant and without behavioral disturbance. Group Spec/RT/OT/AREVALO Present: MUKUND Hong Group Spec/RT/OT/AREVALO Input: 12/15/17 - Patient isolates to room and declines to participate in group activities. Discharge Plan SMA Documentation Scribe: HENNY Asif Date Resolved: Dec 15, 2017 Teaching Recipient: Patient Lisa,Zulema INMAN Dec 15, 2017 16:10
--- NOTE | 2017-12-15 17:00 | HHI.DS ---
Psychiatry Discharge Summary Inpatient Psychiatric care?: Yes Advance Directive: No Reason Not Provided: not interested Mental Health AdvanceDirective: No Health Care Proxy: No Admission Admission Date Dec 08, 2017 at 19:46 Admission Diagnosis: (1) Major depressive disorder, single episode, moderate degree ICD Code: F32.1 - Major depressive disorder, single episode, moderate (2) Substance abuse ICD Code: F19.10 - Substance abuse Brief History Patient is a 52-year-old -Maldivian man, with 3 adult children, domiciled with mother, unemployed, with a past psychiatric history of anxiety, no previous psychiatric admissions, no previous suicide attempt or self injurious behavior, with the substance use history significant for marijuana and cocaine use disorder with a past medical history of hypertension, CAD, previous [place] with stents, who was brought in to the ED reporting suicide ideation with plan to walk into traffic in the context of recent substance intoxication which patient was put under Baptiste act and admitted to the inpatient psychiatry for further evaluation and management. Patient was found lying hospital bed noted, cooperative. Patient states that he had let people down when he would "do something illness supposed to do), referring to his recent relapse into substance use. Patient states for the past month he had been feeling depressed, with decreased motivation, sleep, energy, concentration , and feeling hopeless along with suicide ideation for the past week with no specific plan. Patient denies any manic or psychotic symptoms denies any perceptional service of delusions at this time. Patient reports that his main stressors have been contributing to his current depressed mood have been his drug use, family discord, being unemployed, and chronic medical issues. Family psychiatric history: Denies Past psychiatric history: Self-reported diagnosis of anxiety, no previous psychiatric admissions, no previous suicide attempt or self-injurious behavior. Patient denies any history of abuse. Patient with no mental health outpatient follow-up provider, but states he has a primary care doctor. Substance use history: Alcohol use "sometimes", 2 times per week usually 4 drinks at a time, cocaine use every 2-3 months, marijuana use daily for the past 6 months, usually for joint at a time. Patient denies any previous detox or rehabs. Past medical history: Hypertension, CAD, previous [place] in 2007 and recently in 2018 with stent placement. Allergies: NKDA, milk Social history: with 3 adult children, domiciled with mother, unemployed. Patient is legal history significant for residential in 1997 2001 for drug related charges. Collateral contact his mother, Yuni Hutchinson (no number provided as patient does not want mother involved in his care at this time). Tobacco Use In Past 30 Days: 5 or More Cigarettes/Day Alcohol Use: 2-3 Times Per Week Results Blood Pressure 141 / 80 Vital Signs Date Time Temp Pulse Resp B/P (MAP) Pulse Ox O2 Delivery O2 Flow Rate FiO2 12/15/17 06:09 97.5 77 18 141/80 (100) 96 Laboratory Results Test 12/09/17 07:14 Cholesterol Level 156 MG/DL (120-200) HDL Cholesterol 45.8 MG/DL (40.0-60.0) Hemoglobin A1c 6.6 % (4.3-6.0) LDL Cholesterol 88 MG/DL (0-99) Triglycerides Level 110 MG/DL (42-150) Imaging Last Impressions Renal Ultrasound 12/10/17 0000 Signed Impressions: Service Date/Time: Sunday, December 10, 2017 15:04 - CONCLUSION: 1. Unremarkable renal ultrasound examination. Specifically, no evidence for obstructive uropathy. Seun Hansen MD Medications Approp Antipsych med options 1 - Minimum of three failed multiple trials of monotherapy. 2 - Documented plan to taper to monotherapy due to previous use of multiple meds OR cross-taper in progress at D/C. 3 - Documentation of augmentation of Clozapine. 4 - Justification other than those listed in allowable values 1-3, document here : Discharge Pt Condition on Discharge: Stable Discharge Disposition: Discharge Home Discharge Instructions Diet Instructions: Heart Healthy Diet Activities you can perform: Regular-No Restrictions Scheduled Appointment: eGrman Aleman Appointment Time: 8- 3 Mental Status Examination Appearance: Appropriate Consciousness: Alert Orientation: x4 Motor Activity: Other (Sitting on bed) Speech: Slow Language: Adequate Fund of Knowledge: Adequate Attention and Concentration: Adequate Memory: Unremarkable Mood: Appropriate Affect: Euthymic, Other (dysphoric) Thought Process & Associations: Intact, Goal directed Thought Content: Appropriate Hallucination Type: None Delusion Type: None Suicidal Ideation: No Suicidal Plan: No Suicidal Intention: No Homicidal Ideation: No Homicidal Plan: No Homicidal Intention: No Insight: Fair Judgment: Impulsive Discharge/Advance Care Plan Health Problems: (1) Major depressive disorder, single episode, moderate degree (2) Substance abuse Goals to promote your health * To prevent worsening of your condition and complications * To maintain your health at the optimal level Directions to meet your goals Take your medications as prescribed Follow your dietary instruction Follow activity as directed Keep your appointments as scheduled Take your immunizations and boosters as scheduled If your symptoms worsen call your PCP, if no PCP go to Urgent Care Center or Emergency Room For 31/03 questions related to your inpatient stay or results of tests pending at discharge, please contact Dr. Alejandro Morton at Smoking is Dangerous to Your Health. Avoid second hand smoking Alejandro Morton MD Dec 15, 2017 17:00
== END 2017-12-15 18:55 | disposition home or self-care (01) | DRG 885 ==
LOC: NEPJ 14:16 → NEDA 19:46 → H260 20:22
PROVIDERS: ADMIT Student in an Organized Health Care Education/Training Program; ATTEND Student in an Organized Health Care Education/Training Program
DX: F32.1 Major depressive disorder, single episode, moderate (principal); R45.851 Suicidal ideations; Z68.42 Body mass index [BMI] 45.0-49.9, adult; F19.10 Other psychoactive substance abuse, uncomplicated; I10 Essential (primary) hypertension; R20.0 Anesthesia of skin; E78.00 Pure hypercholesterolemia, unspecified; I25.10 Atherosclerotic heart disease of native coronary artery without angina pectoris; N40.0 Benign prostatic hyperplasia without lower urinary tract symptoms; E78.5 Hyperlipidemia, unspecified; R73.03 Prediabetes; E66.9 Obesity, unspecified; F17.210 Nicotine dependence, cigarettes, uncomplicated; F12.90 Cannabis use, unspecified, uncomplicated; I25.2 Old myocardial infarction; Z79.82 Long term (current) use of aspirin; Z79.02 Long term (current) use of antithrombotics/antiplatelets; Z82.49 Family history of ischemic heart disease and other diseases of the circulatory system; Z95.5 Presence of coronary angioplasty implant and graft; Z86.73 Personal history of transient ischemic attack (TIA), and cerebral infarction without residual deficits
CPT/HCPCS: 76775; 80048; 80053; 80061; 80307; 81001; 82948; 83036; 84443; 85025; 93005; Q0163